=== PATIENT | male | born 1965 | race Caucasian/White ===

== ENCOUNTER 2018-06-02 19:01 | Emergency (ER) | payer MEDICAID ==
[~2018-06-02] VITALS: Ht 167.6 cm; Wt 73.7 kg
[~2018-06-02 19:01] MED LIST: ASPI-1265 PO; CEFI400C PO; CLIN-96 PO; HYDR-4383 PO; LANTUS SUBCUT; LISI-222 PO; METF500T PO
[2018-06-02] MEDS ORDERED: ketorolac tromethamine 15mg/ml inj. IM ONE (19:40)
[2018-06-02 20:28] LABS: BASOPHILS % (AUTO) 0.5 % (0-1); EOSINOPHILS # (AUTO) 0.1 X10'3 (0-0.9); EOSINOPHILS % (AUTO) 1.1 % (0-6); HEMATOCRIT 42.7 % (42.0-52.0); LYMPHOCYTES # (AUTO) 1.1 X10'3 (1.1-4.8); MEAN CORPUSCULAR HEMOGLOBIN 28.8 PG (27.0-31.0); MEAN CORPUSCULAR HGB CONC 32.7 g/dL (33.0-36.5); MEAN CORPUSCULAR VOLUME 88.2 FL (78-98); MEAN PLATELET VOLUME 8.4 FL (7.4-10.4); MONOCYTES # (AUTO) 0.5 X10'3 (0-0.9); MONOCYTES % (AUTO) 7.1 % (2-12); NEUTROPHILS # (AUTO) 5.4 X10'3 (1.8-7.7); NEUTROPHILS % (AUTO) 76.3 % (42-75); PLATELET COUNT 270 X10'3 (140-440); RED BLOOD COUNT 4.85 X10'6 (4.70-6.10); WHITE BLOOD COUNT 7.1 X10'3 (4.5-11.0)
[2018-06-02] MEDS ORDERED: IBUP-1984 PO (21:16)
[2018-06-02 21:29] VITALS: BP 152/101
== END 2018-06-02 21:30 | disposition home or self-care (01) ==
LOC: ER 19:01
DX: M79.645 Pain in left finger(s) (principal); I10 Essential (primary) hypertension; E11.9 Type 2 diabetes mellitus without complications; G89.29 Other chronic pain; Z60.2 Problems related to living alone; Z59.0 Homelessness; Z56.0 Unemployment, unspecified; Z88.0 Allergy status to penicillin; Z79.82 Long term (current) use of aspirin; Z79.4 Long term (current) use of insulin; Z79.899 Other long term (current) drug therapy
CPT/HCPCS: 36415; 73140; 84550; 85025; 96372; 99284; J1885

== ENCOUNTER 2018-06-25 02:36 | Inpatient (IN) | payer MEDICAID ==
[~2018-06-25] VITALS: Ht 165.1 cm; Wt 70.0 kg
[2018-06-25] MEDS ORDERED: normal saline 1000ML IV soln IVB ONE ×2 (03:35→05:20)
[2018-06-25 03:52] LABS: BASOPHILS # (AUTO) 0.1 X10'3 (0-0.2); BASOPHILS % (AUTO) 0.9 % (0-1); EOSINOPHILS # (AUTO) 0.1 X10'3 (0-0.9); EOSINOPHILS % (AUTO) 1.3 % (0-6); HEMATOCRIT 42.2 % (42.0-52.0); LYMPHOCYTES # (AUTO) 1.1 X10'3 (1.1-4.8); LYMPHOCYTES % (AUTO) 14.5 % (21-51); MEAN CORPUSCULAR HEMOGLOBIN 29.3 PG (27.0-31.0); MEAN CORPUSCULAR HGB CONC 33.3 g/dL (33.0-36.5); MEAN PLATELET VOLUME 8.7 FL (7.4-10.4); MONOCYTES # (AUTO) 0.7 X10'3 (0-0.9); MONOCYTES % (AUTO) 8.7 % (2-12); NEUTROPHILS # (AUTO) 5.6 X10'3 (1.8-7.7); NEUTROPHILS % (AUTO) 74.6 % (42-75); PLATELET COUNT 340 X10'3 (140-440); RED CELL DISTRIBUTION WIDTH 12.9 % (11.5-14.5); WHITE BLOOD COUNT 7.5 X10'3 (4.5-11.0)
[2018-06-25 04:03] LABS: ALANINE AMINOTRANSFERASE 59 U/L (12-78); ALBUMIN 2.8 G/DL (3.4-5.0); ALBUMIN/GLOBULIN RATIO 0.7 (1.1-1.5); ALKALINE PHOSPHATASE 245 IU/L (46-116); ANION GAP 5 (8-16); ASPARTATE AMINO TRANSFERASE 27 U/L (10-37); BILIRUBIN,TOTAL 0.3 MG/DL (0.1-1.0); BLOOD UREA NITROGEN 15 MG/DL (7-18); BUN/CREATININE RATIO 11.6 (5.4-32.0); CHLORIDE 93 MMOL/L (99-107); CREATININE 1.29 MG/DL (0.60-1.10); POTASSIUM 4.4 MMOL/L (3.5-5.1); SODIUM 128 MMOL/L (135-145); TOTAL CARBON DIOXIDE 30.3 MMOL/L (24-32); eGFR 58 ML/MIN
[2018-06-25 04:04] LABS: LIPASE 1896 U/L (73-393)
[2018-06-25 04:04] LABS: CLARITY,URINE CLEAR (Clear); COLOR,URINE STRAW (Yellow); GLUCOSE, URINE >=1000 mg/dl (Neg); KETONES,URINE NEGATIVE (Neg); LEUKOCYTE ESTERASE ,URINE NEGATIVE (Neg); NITRITES, URINE NEGATIVE (Neg); OCCULT BLOOD,URINE TRACE-INTACT (Neg); PH,URINE 6.5 (4.8-8.0); PROTEIN,URINE NEGATIVE (Neg); UROBILINOGEN,URINE 0.2 E.U/dL (0.2-1.0)
[2018-06-25 04:14] LABS: UA COLLECTION TYPE CLN CATCH MIDSTREAM
[2018-06-25 04:18] LABS: BACTERIA,URINE NONE SEEN /HPF (Neg); MUCUS STRANDS NONE SEEN /LPF (Neg); RBC,URINE 0-2 /HPF (0-2); SQUAMOUS EPITHELIAL CELL,UR NONE SEEN /LPF (FEW); WBC,URINE 0-4 /HPF (0-4)
[2018-06-25 04:24] LABS: GLUCOSE 800 MG/DL (70-104)
[2018-06-25] MEDS ORDERED: NO HOME MEDS (05:26)
[2018-06-25] MEDS ORDERED: iohexol 300mg/ml 100ml inj. ONE (05:32)
[2018-06-25] MEDS ORDERED: LANTUS SQ (07:08)
[2018-06-25] MEDS ORDERED: magnesium 4gm in 100ml NS 100 ML IV PRN (07:15)
[2018-06-25] MEDS ORDERED: potassium Cl 40MEQ/NS 500ml 500 ML IV PRN ×2 (07:15)
[2018-06-25] MEDS ORDERED: HYDROcodone/acetaminophen 5mg/325mg tablet PO PRN (07:15)
[2018-06-25] MEDS ORDERED: mag hydrox/Alum hydrox/simeth 30ml oral suspension PO PRN (07:15)
[2018-06-25] MEDS ORDERED: HYDROcodone/acetaminophen 10/325mg tab PO PRN (07:15)
[2018-06-25] MEDS ORDERED: MESSAGE TO PHARMACY PO ONE (07:15)
[2018-06-25] MEDS ORDERED: dextrose ORAL solution 15 GM/59 ML bottle PO PRN ×2 (07:15)
[2018-06-25] MEDS ORDERED: dextrose 50%-water 50ml dispensing syringe IV PRN ×2 (07:15)
[2018-06-25] MEDS ORDERED: glucagon, human recombinant 1mg kit SUBCUT PRN (07:15)
[2018-06-25] MEDS ORDERED: magnesium Cl slow-release 64mg tablet PO PRN (07:15)
[2018-06-25] MEDS ORDERED: ondansetron/PF 4mg/2ml inj IV PRN (07:15)
[2018-06-25] MEDS ORDERED: magnesium 2GM in 50ml NS 50 ML IV PRN (07:15)
[2018-06-25] MEDS ORDERED: morphine 2 MG/ML inj. syringe IV PRN (07:15)
[2018-06-25] MEDS ORDERED: acetaminophen 325mg tablet PO PRN ×2 (07:15)
[2018-06-25] MEDS ORDERED: potassium Cl 20 mEq SR tablet PO PRN ×2 (07:15)
[2018-06-25] MEDS ORDERED: magnesium hydroxide 30ml (MOM) UD suspension PO PRN (07:15)
[2018-06-25] MEDS: normal saline 1000ml 1,000 ML IV SCH ×3 (07:28→22:15)
[2018-06-25 07:41] LABS: CLARITY,URINE CLEAR (Clear); COLOR,URINE YELLOW (Yellow); GLUCOSE, URINE >=1000 mg/dl (Neg); KETONES,URINE NEGATIVE (Neg); LEUKOCYTE ESTERASE ,URINE NEGATIVE (Neg); NITRITES, URINE NEGATIVE (Neg); OCCULT BLOOD,URINE TRACE-LYSED (Neg); PROTEIN,URINE NEGATIVE (Neg); UROBILINOGEN,URINE 0.2 E.U/dL (0.2-1.0)
[2018-06-25 07:46] LABS: UA COLLECTION TYPE CLN CATCH MIDSTREAM
[2018-06-25 07:47] LABS: BACTERIA,URINE NONE SEEN /HPF (Neg); MUCUS STRANDS FEW /LPF (Neg); RBC,URINE 0-2 /HPF (0-2); SQUAMOUS EPITHELIAL CELL,UR FEW /LPF (FEW); WBC,URINE NONE SEEN /HPF (0-4)
[2018-06-25] MEDS: K and/or MAG REPLACEMENT MC SCH (07:48)
[2018-06-25] MEDS: heparin, porcine 5000 units/ml vial SQ SCH ×2 (07:53→19:27)
--- NOTE | 2018-06-25 08:21 | NUR ---
Called report to Melissa OREILLY. Dr. Calderón talking with pt. now.
[2018-06-25] MEDS: insulin Lispro (HumaLOG) vial - multi-dose SQ SCH ×3 (08:39→19:25)
[2018-06-25 08:44] LABS: HEMOGLOBIN A1C 12.5 % (4.5-6.2)
[2018-06-25] MEDS: metroNIDAZOLE-Flagyl 500mg/NS 100 ML IV SCH ×2 (10:28→17:23)
[2018-06-25 12:00] VITALS: BP 119/89
[2018-06-25] MEDS: morphine 2 MG/ML inj. syringe IV PRN ×2 (17:34→22:24)
[2018-06-25 19:00] VITALS: BP 112/74
[2018-06-25] MEDS ORDERED: temazepam 15mg capsule PO PRN (21:00)
[2018-06-25] MEDS ORDERED: insulin glargine (Lantus) pen - multi-dose SQ SCH (21:00)
[2018-06-25 23:00] VITALS: BP 112/76
[2018-06-26] MEDS: metroNIDAZOLE-Flagyl 500mg/NS 100 ML IV SCH ×3 (00:23→16:00)
[2018-06-26] MEDS: morphine 2 MG/ML inj. syringe IV PRN ×2 (02:16→09:31)
[2018-06-26] MEDS: normal saline 1000ml 1,000 ML IV SCH ×2 (05:20→11:09)
[2018-06-26 05:21] LABS: BASOPHILS % (AUTO) 0.6 % (0-1); EOSINOPHILS # (AUTO) 0.1 X10'3 (0-0.9); EOSINOPHILS % (AUTO) 1.4 % (0-6); HEMATOCRIT 37.6 % (42.0-52.0); HEMOGLOBIN 12.8 g/dl (14.0-17.9); LYMPHOCYTES # (AUTO) 1.7 X10'3 (1.1-4.8); LYMPHOCYTES % (AUTO) 23.7 % (21-51); MEAN CORPUSCULAR HEMOGLOBIN 29.5 PG (27.0-31.0); MEAN CORPUSCULAR VOLUME 86.8 FL (78-98); MEAN PLATELET VOLUME 8.6 FL (7.4-10.4); MONOCYTES # (AUTO) 0.5 X10'3 (0-0.9); MONOCYTES % (AUTO) 7.6 % (2-12); NEUTROPHILS # (AUTO) 4.8 X10'3 (1.8-7.7); NEUTROPHILS % (AUTO) 66.7 % (42-75); PLATELET COUNT 314 X10'3 (140-440); RED BLOOD COUNT 4.33 X10'6 (4.70-6.10); RED CELL DISTRIBUTION WIDTH 13.3 % (11.5-14.5); WHITE BLOOD COUNT 7.2 X10'3 (4.5-11.0)
--- NOTE | 2018-06-26 05:23 | NUR ---
Patient in room DOROTHY 340. I have received report from Deena RN and had the opportunity to ask questions and assume patient care. Pt sleeping on his back. No signs of distress, will continue to monitor.
[2018-06-26 05:46] LABS: ALANINE AMINOTRANSFERASE 43 U/L (12-78); ALBUMIN 2.2 G/DL (3.4-5.0); ALBUMIN/GLOBULIN RATIO 0.6 (1.1-1.5); ALKALINE PHOSPHATASE 186 IU/L (46-116); ANION GAP 8 (8-16); ASPARTATE AMINO TRANSFERASE 20 U/L (10-37); BILIRUBIN,TOTAL 0.3 MG/DL (0.1-1.0); BLOOD UREA NITROGEN 10 MG/DL (7-18); BUN/CREATININE RATIO 11.6 (5.4-32.0); CALCIUM 8.3 MG/DL (8.5-10.1); CHLORIDE 107 MMOL/L (99-107); CREATININE 0.86 MG/DL (0.60-1.10); GLUCOSE 188 MG/DL (70-104); MAGNESIUM 1.4 MG/DL (1.5-2.4); POTASSIUM 3.5 MMOL/L (3.5-5.1); SODIUM 140 MMOL/L (135-145); TOTAL CARBON DIOXIDE 25.1 MMOL/L (24-32); TOTAL PROTEIN 5.6 G/DL (6.4-8.2); eGFR > 90 ML/MIN
--- NOTE | 2018-06-26 06:27 | NUR ---
Problems reprioritized. Patient report given, questions answered & plan of care reviewed with Melissa OREILLY.
[2018-06-26 07:16] VITALS: BP 132/75
[2018-06-26] MEDS: K and/or MAG REPLACEMENT MC SCH (08:00)
[2018-06-26] MEDS: heparin, porcine 5000 units/ml vial SQ SCH (09:29)
[2018-06-26] MEDS: insulin Lispro (HumaLOG) vial - multi-dose SQ SCH ×2 (11:07→14:27)
[2018-06-26 12:00] VITALS: BP 115/75
[2018-06-26] MEDS ORDERED: LEVO500T89 PO (12:57)
[2018-06-26] MEDS ORDERED: INSU100C10 SQ (12:59)
--- NOTE | 2018-06-26 13:53 | NUR ---
DM Consult: A1C 12.5. Pt admit w/ back and side pain DX acute pancreatitis GLU 800. GLU 253 today pt refused Lantus. Pt seen by RD for written/verbal DM ed w/ RD contact information provided. Pt reports he has a place to stay and is able to cook meals at home though EMR says homeless hx. RD reviewed proper portion sizing, meal frequency, hydration, and protein/fiber needs. RD encouraged pt to attend CDE course and contact RD in case further questions. Pt currently NPO w/ d/c orders in place. LB 06/24. Will continue to monitor. Rec: 1. advance diet to carb controlled/heart healthy 2. monitor for ONS needs 3. wt per rx Addendum: 06/26/18 at [address] Amended: Links added.
== END 2018-06-26 17:00 | disposition home or self-care (01) | DRG 463 ==
LOC: ER 02:36 → SUR 3N 07:19
PROVIDERS: ADMIT Internal Medicine; ATTEND Hospitalist
PROC: BW211ZZ Computerized Tomography (CT Scan) of Abdomen and Pelvis using Low Osmolar Contrast (ICD-10-PCS; principal; 2018-06-25)
DX: N12 Tubulo-interstitial nephritis, not specified as acute or chronic (principal); N17.9 Acute kidney failure, unspecified; E11.22 Type 2 diabetes mellitus with diabetic chronic kidney disease; E11.42 Type 2 diabetes mellitus with diabetic polyneuropathy; E11.65 Type 2 diabetes mellitus with hyperglycemia; E83.42 Hypomagnesemia; E87.1 Hypo-osmolality and hyponatremia; F15.90 Other stimulant use, unspecified, uncomplicated; F17.210 Nicotine dependence, cigarettes, uncomplicated; I12.9 Hypertensive chronic kidney disease with stage 1 through stage 4 chronic kidney disease, or unspecified chronic kidney disease; M54.9 Dorsalgia, unspecified; N18.9 Chronic kidney disease, unspecified; G89.29 Other chronic pain; Z59.0 Homelessness; Z88.0 Allergy status to penicillin; Z56.0 Unemployment, unspecified
CPT/HCPCS: 36415; 71045; 74177; 80053; 81001; 82009; 82948; 83036; 83605; 83690; 83735; 84484; 85025; 85610; 87040; 87070; 93005; 93306; 96360; 99285; G0378; J1644; J1815; J2270; J3490; J7030; Q9967

== ENCOUNTER 2018-07-09 23:57 | Emergency (ER) | payer MEDICAID ==
[~2018-07-09] VITALS: Ht 167.6 cm; Wt 67.2 kg
[~2018-07-09 23:57] MED LIST changes: -ASPI-1265 PO; -CEFI400C PO; -CLIN-96 PO; -HYDR-4383 PO; +INSU100C10 SQ; +LANTUS SQ; -LANTUS SUBCUT; +LEVO500T89 PO; -LISI-222 PO; -METF500T PO
[2018-07-10] MEDS ORDERED: morphine 4 MG/ML inj SYRINge IV PRN (00:40)
[2018-07-10] MEDS ORDERED: ondansetron/PF 4mg/2ml inj IV ONE (00:40)
[2018-07-10] MEDS ORDERED: normal saline 1000ML IV soln IVB ONE ×2 (00:40→01:10)
[2018-07-10 00:46] LABS: CLARITY,URINE CLEAR (Clear); COLOR,URINE YELLOW (Yellow); GLUCOSE, URINE >=1000 mg/dl (Neg); KETONES,URINE NEGATIVE (Neg); LEUKOCYTE ESTERASE ,URINE NEGATIVE (Neg); NITRITES, URINE NEGATIVE (Neg); OCCULT BLOOD,URINE NEGATIVE (Neg); PROTEIN,URINE NEGATIVE (Neg); UROBILINOGEN,URINE 0.2 E.U/dL (0.2-1.0)
[2018-07-10 00:47] LABS: BASOPHILS # (AUTO) 0.1 X10'3 (0-0.2); BASOPHILS % (AUTO) 0.9 % (0-1); EOSINOPHILS # (AUTO) 0.1 X10'3 (0-0.9); EOSINOPHILS % (AUTO) 1.1 % (0-6); HEMATOCRIT 42.1 % (42.0-52.0); HEMOGLOBIN 14.2 g/dl (14.0-17.9); LYMPHOCYTES # (AUTO) 1.6 X10'3 (1.1-4.8); LYMPHOCYTES % (AUTO) 20.8 % (21-51); MEAN CORPUSCULAR HEMOGLOBIN 29.8 PG (27.0-31.0); MEAN CORPUSCULAR HGB CONC 33.7 g/dL (33.0-36.5); MEAN CORPUSCULAR VOLUME 88.7 FL (78-98); MEAN PLATELET VOLUME 8.3 FL (7.4-10.4); MONOCYTES # (AUTO) 0.6 X10'3 (0-0.9); MONOCYTES % (AUTO) 7.3 % (2-12); NEUTROPHILS # (AUTO) 5.3 X10'3 (1.8-7.7); NEUTROPHILS % (AUTO) 69.9 % (42-75); PLATELET COUNT 364 X10'3 (140-440); RED BLOOD COUNT 4.75 X10'6 (4.70-6.10); RED CELL DISTRIBUTION WIDTH 13.4 % (11.5-14.5); WHITE BLOOD COUNT 7.6 X10'3 (4.5-11.0)
[2018-07-10 00:51] LABS: RBC,URINE NONE SEEN /HPF (0-2); SQUAMOUS EPITHELIAL CELL,UR NONE SEEN /LPF (FEW); UA COLLECTION TYPE CLN CATCH MIDSTREAM; WBC,URINE NONE SEEN /HPF (0-4)
[2018-07-10 00:52] LABS: BACTERIA,URINE NONE SEEN /HPF (Neg)
[2018-07-10 01:01] LABS: CHLORIDE 98 MMOL/L (99-107); POTASSIUM 4.2 MMOL/L (3.5-5.1); SODIUM 132 MMOL/L (135-145); TOTAL CARBON DIOXIDE 28.8 MMOL/L (24-32)
[2018-07-10 01:02] LABS: ALANINE AMINOTRANSFERASE 30 U/L (12-78); ALBUMIN 3.1 G/DL (3.4-5.0); ALBUMIN/GLOBULIN RATIO 0.8 (1.1-1.5); ALKALINE PHOSPHATASE 144 IU/L (46-116); AMYLASE 61 U/L (25-115); ANION GAP 5 (8-16); ASPARTATE AMINO TRANSFERASE 13 U/L (10-37); BILIRUBIN,TOTAL 0.3 MG/DL (0.1-1.0); BLOOD UREA NITROGEN 20 MG/DL (7-18); BUN/CREATININE RATIO 17.5 (5.4-32.0); CALCIUM 9.5 MG/DL (8.5-10.1); CREATININE 1.14 MG/DL (0.60-1.10); LIPASE 819 U/L (73-393); TOTAL PROTEIN 7.1 G/DL (6.4-8.2); eGFR 67 ML/MIN
[2018-07-10 01:04] VITALS: BP 143/101
[2018-07-10 01:07] LABS: GLUCOSE 545 MG/DL (70-104)
[2018-07-10] MEDS ORDERED: insulin regular, human 10 units/0.1 ml syringe IV ONE (01:10)
== END 2018-07-10 02:04 | disposition home or self-care (01) ==
LOC: ER 23:57
DX: E11.65 Type 2 diabetes mellitus with hyperglycemia (principal); R10.13 Epigastric pain; I12.9 Hypertensive chronic kidney disease with stage 1 through stage 4 chronic kidney disease, or unspecified chronic kidney disease; E11.22 Type 2 diabetes mellitus with diabetic chronic kidney disease; N18.9 Chronic kidney disease, unspecified; G89.29 Other chronic pain; Z59.0 Homelessness; Z56.0 Unemployment, unspecified; Z88.0 Allergy status to penicillin; Z79.4 Long term (current) use of insulin; Z79.2 Long term (current) use of antibiotics
CPT/HCPCS: 36415; 74176; 80053; 81001; 82150; 82948; 83690; 85025; 85610; 96361; 96374; 96375; 99284; J1815; J2270; J2405; J7030

== ENCOUNTER 2018-12-12 05:27 | Day surgery (SDC) | payer MEDICAID ==
[2018-12-07 10:43] LABS: LYMPHOCYTES # (AUTO) 2.2 X10'3 (1.1-4.8); PRE OP HEMOGLOBIN 16.6 g/dL (14.0-17.9)
[2018-12-07 10:45] LABS: BASOPHILS # (AUTO) 0.1 X10'3 (0-0.2); BASOPHILS % (AUTO) 0.8 % (0-1); EOSINOPHILS # (AUTO) 0.1 X10'3 (0-0.9); EOSINOPHILS % (AUTO) 1.9 % (0-6); LYMPHOCYTES % (AUTO) 29.4 % (21-51); MEAN CORPUSCULAR HEMOGLOBIN 30.9 PG (27.0-31.0); MEAN CORPUSCULAR HGB CONC 35.2 g/dL (33.0-36.5); MEAN CORPUSCULAR VOLUME 87.6 FL (78-98); MEAN PLATELET VOLUME 7.8 FL (7.4-10.4); MONOCYTES # (AUTO) 0.6 X10'3 (0-0.9); MONOCYTES % (AUTO) 7.9 % (2-12); NEUTROPHILS # (AUTO) 4.4 X10'3 (1.8-7.7); PRE OP HEMATOCRIT 47.1 % (42.0-52.0); PRE OP PLATELET COUNT 291 X10'3 (140-440); RED BLOOD COUNT 5.37 X10'6 (4.70-6.10); RED CELL DISTRIBUTION WIDTH 12.8 % (11.5-14.5)
[2018-12-07 10:52] LABS: ALBUMIN 3.7 G/DL (3.4-5.0); ALBUMIN/GLOBULIN RATIO 0.9 (1.1-1.5); ALKALINE PHOSPHATASE 131 IU/L (46-116); BLOOD UREA NITROGEN 14 MG/DL (7-18); BUN/CREATININE RATIO 12.8 (5.4-32.0); CALCIUM 9.3 MG/DL (8.5-10.1); CHLORIDE 100 MMOL/L (99-107); CREATININE 1.09 MG/DL (0.60-1.10); PRE OP ALT 40 U/L (30-65); PRE OP ANION GAP 6 (8-16); PRE OP AST 12 U/L (10-37); PRE OP BILIRUB, TOTAL 0.4 MG/DL (0.0-1.0); PRE OP POTASSIUM 4.3 MMOL/L (3.4-5.1); PRE OP SODIUM 136 MMOL/L (135-145); TOTAL CARBON DIOXIDE 30.5 MMOL/L (24-32); TOTAL PROTEIN 7.6 G/DL (6.4-8.2); eGFR 70 ML/MIN
[2018-12-07 11:02] LABS: PRE OP GLUCOSE 405 MG/DL (70-104)
[2018-12-07 13:49] LABS: HEMOGLOBIN A1C 10.7 % (4.5-6.2)
[~2018-12-12] VITALS: Ht 170.2 cm; Wt 63.5 kg
[~2018-12-12 05:27] MED LIST changes: -LEVO500T89 PO; +LISI10TA4 PO; +METF500T20 PO; +ringers solution, lacted 1,000 ML IV SCH
[2018-12-12] MEDS ORDERED: famotidine 20mg tablet PO ONE (05:30)
[2018-12-12] MEDS ORDERED: clindamycin-Cleocin 900mg/D5W 50 ML IV ONE (05:30)
[2018-12-12] MEDS ORDERED: LIDOcaine 1% (10mg/ml) 2ml vial ONE (06:00)
[2018-12-12] MEDS ORDERED: LIDOcaine 1% 30ml preserv. free vial ONE (06:41)
[2018-12-12] MEDS ORDERED: BUPIVAcaine/PF 2.5 mg/ml (0.25%) 30ml vial ONE (06:41)
[2018-12-12] MEDS ORDERED: insulin regular, human 10 units/0.1 ml syringe IV ONE (07:00)
[2018-12-12] MEDS ORDERED: insulin glargine (Lantus) pen - multi-dose SQ ONE (07:00)
--- NOTE | 2018-12-12 07:30 | NUR ---
PT ARRIVED TO [facility] FOR SURGERY AT 0530, ACCU CHECK AT THAT TIME WAS 355. CALL OUT TO DR NGUYEN, ANESTHESIA. AFTER ORDERS WERE RECEIVED AND MEDS WERE RETRIEVED FROM PHARMACY, PT WAS GIVEN 20 UNITS OF REGULAR INSULIN IV. DR RAZO CAME TO SEE PT, SURGERY IS CANCELLED UNTIL PT HAS BETTER DIABETIC CONTROL. PT DID NOT RECEIVE 40 UNITS LANTUS BECAUSE SURGERY WAS CANCELLED. PT LEFT BEFORE BLOOD GLUCOSE WAS RE CHECKED. I CALLED HIM AT HOME AND HAD HIM CHECK IT, IT WAS 121. PT STATES HE WILL FOLLOW UP JOHN WITH PCP TO ADJUST MEDS.
== END 2018-12-12 07:30 | disposition home or self-care (01) ==
LOC: PAS 05:27
PROVIDERS: ATTEND Surgery
DX: K40.20 Bilateral inguinal hernia, without obstruction or gangrene, not specified as recurrent (principal); Z53.8 Procedure and treatment not carried out for other reasons; I10 Essential (primary) hypertension; E11.40 Type 2 diabetes mellitus with diabetic neuropathy, unspecified; Z98.890 Other specified postprocedural states; Z79.4 Long term (current) use of insulin; Z79.899 Other long term (current) drug therapy; F17.210 Nicotine dependence, cigarettes, uncomplicated; Z88.0 Allergy status to penicillin; Z83.3 Family history of diabetes mellitus; Z82.49 Family history of ischemic heart disease and other diseases of the circulatory system; Z80.9 Family history of malignant neoplasm, unspecified
CPT/HCPCS: 36415; 80053; 82948; 83036; 85025; 93005; J1815; J2001; J3490; J7120

== ENCOUNTER 2019-10-30 15:58 | Inpatient (IN) | payer MEDICAID ==
[~2019-10-30] VITALS: Ht 170.2 cm; Wt 65.9 kg
[~2019-10-30 15:58] MED LIST changes: +METF-900 PO; -METF500T20 PO; -ringers solution, lacted 1,000 ML IV SCH
[2019-10-30] MEDS ORDERED: normal saline 1000ML IV soln IVB ONE (16:40)
[2019-10-30] MEDS ORDERED: ondansetron/PF 4mg/2ml inj IV ONE (16:40)
[2019-10-30] MEDS ORDERED: morphine 4 MG/ML inj SYRINge IV ONE (16:40)
--- NOTE | 2019-10-30 16:58 | NUR ---
RELIEVING RN FOR BREAK, PT IS CURLED UP IN POSITION FROM PAIN "IT IS A 20", C/O PAIN TO LEFT LATERAL RIBS, HAVE MEDICATED PER MD ORDER, PAIN REMAINS "20", PT IS MOANING LOUDLY, Beba WOODY AWARE,
[2019-10-30] MEDS ORDERED: fentaNYL/PF 50MCG/1 ML 2ML syringe IV ONE ×2 (17:05→17:45)
[2019-10-30 17:32] LABS: BASOPHILS % (AUTO) 0.6 % (0-1); EOSINOPHILS % (AUTO) 0.7 % (0-6); HEMATOCRIT 44.4 % (42.0-52.0); HEMOGLOBIN 14.9 g/dl (14.0-17.9); LYMPHOCYTES # (AUTO) 1.6 X10'3 (1.1-4.8); LYMPHOCYTES % (AUTO) 23.8 % (21-51); MEAN CORPUSCULAR HEMOGLOBIN 30.6 PG (27.0-31.0); MEAN CORPUSCULAR HGB CONC 33.6 g/dL (33.0-36.5); MEAN CORPUSCULAR VOLUME 91.2 FL (78-98); MEAN PLATELET VOLUME 8.8 FL (7.4-10.4); MONOCYTES # (AUTO) 0.6 X10'3 (0-0.9); MONOCYTES % (AUTO) 9.2 % (2-12); NEUTROPHILS # (AUTO) 4.4 X10'3 (1.8-7.7); NEUTROPHILS % (AUTO) 65.7 % (42-75); PLATELET COUNT 305 X10'3 (140-440); RED BLOOD COUNT 4.87 X10'6 (4.70-6.10); RED CELL DISTRIBUTION WIDTH 13.2 % (11.5-14.5); WHITE BLOOD COUNT 6.8 X10'3 (4.5-11.0)
--- NOTE | 2019-10-30 17:37 | NUR ---
BACK FROM CT PT PLACED BACK ON MONITOR AND FLUIDS RESUMED
[2019-10-30 17:38] LABS: ALANINE AMINOTRANSFERASE 29 U/L (12-78); ALBUMIN 3.5 G/DL (3.4-5.0); ALBUMIN/GLOBULIN RATIO 1.2 (1.1-1.5); ALKALINE PHOSPHATASE 127 IU/L (46-116); ANION GAP 7 (8-16); ASPARTATE AMINO TRANSFERASE 15 U/L (10-37); BILIRUBIN,TOTAL 0.5 MG/DL (0.1-1.0); BLOOD UREA NITROGEN 22 MG/DL (7-18); BUN/CREATININE RATIO 12.6 (5.4-32.0); CALCIUM 8.9 MG/DL (8.5-10.1); CHLORIDE 98 MMOL/L (99-107); CREATININE 1.74 MG/DL (0.60-1.10); ETHANOL < 0.010 GM/DL (0.0-0.010); POTASSIUM 4.2 MMOL/L (3.5-5.1); SODIUM 131 MMOL/L (135-145); TOTAL CARBON DIOXIDE 25.9 MMOL/L (24-32); TOTAL PROTEIN 6.4 G/DL (6.4-8.2); eGFR 41 ML/MIN
--- NOTE | 2019-10-30 17:41 | NUR ---
let pt know that pt has a pnuemo and increasing pain, req x rays stat
[2019-10-30] MEDS ORDERED: ketamine 10mg/ml 20ml inj IV ONE (17:45)
[2019-10-30] MEDS ORDERED: ketamine 50 mg/ml 10ml vial IV ONE (17:50)
[2019-10-30 17:57] LABS: GLUCOSE 615 MG/DL (70-104)
--- NOTE | 2019-10-30 18:02 | NUR ---
CALLED PT DANY LONDON [phone] TO LET HER KNOW THAT PATIENT IS HERE, LEFT A MESSAGE ON HER VOICE MAIL TO CALL [facility]
[2019-10-30] MEDS ORDERED: HYDROmorphone inj. 0.5 MG/0.5 ML DISP.SYRIN IV ONE (18:30)
[2019-10-30] MEDS ORDERED: diazepam inj 5 MG/ML inj. IV ONE (19:00)
[2019-10-30 19:21] LABS: CLARITY,URINE CLEAR (Clear); COLOR,URINE YELLOW (Yellow); GLUCOSE, URINE >=1000 mg/dl (Neg); KETONES,URINE NEGATIVE (Neg); LEUKOCYTE ESTERASE ,URINE NEGATIVE (Neg); NITRITES, URINE NEGATIVE (Neg); OCCULT BLOOD,URINE NEGATIVE (Neg); PROTEIN,URINE NEGATIVE (Neg); UROBILINOGEN,URINE 0.2 E.U/dL (0.2-1.0)
[2019-10-30 19:33] LABS: UA COLLECTION TYPE CLN CATCH MIDSTREAM; URINE AMPHETAMINE SCREEN POSITIVE (Neg); URINE BARBITUATE SCREEN NEGATIVE (Neg); URINE BENZODIAZEPINES SCREEN NEGATIVE (Neg); URINE CANNABINOID SCREEN NEGATIVE (Neg); URINE COCAINE SCREEN NEGATIVE (Neg); URINE METHADONE SCREEN NEGATIVE (Neg); URINE OPIATE SCREEN POSITIVE (Neg); URINE PHENCYCLIDINE SCREEN NEGATIVE (Neg)
[2019-10-30 19:34] LABS: BACTERIA,URINE NONE SEEN /HPF (Neg); RBC,URINE NONE SEEN /HPF (0-2); SQUAMOUS EPITHELIAL CELL,UR FEW /LPF (FEW); WBC,URINE 0-4 /HPF (0-4)
[2019-10-30] MEDS ORDERED: magnesium 4gm in 100ml NS 100 ML IV PRN (19:50)
[2019-10-30] MEDS ORDERED: HYDROcodone/acetaminophen 5mg/325mg tablet PO PRN (19:50)
[2019-10-30] MEDS ORDERED: magnesium Cl slow-release 64mg tablet PO PRN (19:50)
[2019-10-30] MEDS ORDERED: acetaminophen 325mg tablet PO PRN (19:50)
[2019-10-30] MEDS ORDERED: magnesium hydroxide 30ml (MOM) UD suspension PO PRN (19:50)
[2019-10-30] MEDS ORDERED: potassium CL 10mEq/100ml bag 100 ML IV PRN ×2 (19:50)
[2019-10-30] MEDS ORDERED: magnesium 2GM in 50ml NS 50 ML IV PRN (19:50)
[2019-10-30] MEDS ORDERED: potassium Cl 20 mEq SR tablet PO PRN ×2 (19:50)
[2019-10-30] MEDS ORDERED: ondansetron/PF 4mg/2ml inj IV PRN (19:50)
[2019-10-30] MEDS ORDERED: mag hydrox/Alum hydrox/simeth 30ml oral suspension PO PRN (19:50)
[2019-10-30] MEDS: K and/or MAG REPLACEMENT MC SCH (19:58)
[2019-10-30] MEDS: docusate sod 100mg capsule PO SCH (20:00)
--- NOTE | 2019-10-30 20:50 | NUR ---
Patient in room PCU 3018. I have received report from Sha OREILLY and had the opportunity to ask questions and assume patient care.
--- NOTE | 2019-10-30 20:55 | NUR ---
Patient arrived on unit alert and oriented and in pain. Two RN skin check preformed, MRSA swab obtained. Vital signs-153/98, 93HR,18RR, 100% O2. Blood sugar 346. Will continue to monitor closely and manage pain.
[2019-10-30] MEDS ORDERED: MESSAGE TO PHARMACY PO ONE (21:10)
[2019-10-30] MEDS ORDERED: glucagon, human recombinant 1mg kit SUBCUT PRN (21:10)
[2019-10-30] MEDS ORDERED: dextrose 50%-water 50ml dispensing syringe IV PRN ×2 (21:10)
[2019-10-30] MEDS ORDERED: dextrose ORAL solution 15 GM/59 ML bottle PO PRN ×2 (21:10)
[2019-10-30 21:15] VITALS: BP 153/98
[2019-10-30] MEDS ORDERED: LORazepam 2 mg/ml vial IV PRN (21:15)
[2019-10-30] MEDS: insulin Lispro (HumaLOG) vial - multi-dose SQ SCH (21:38)
[2019-10-31] MEDS: morphine 2 MG/ML inj. syringe IV PRN ×3 (01:36→11:17)
[2019-10-31 02:00] VITALS: BP 135/92
[2019-10-31 06:11] LABS: BASOPHILS % (AUTO) 0.5 % (0-1); EOSINOPHILS # (AUTO) 0.2 X10'3 (0-0.9); EOSINOPHILS % (AUTO) 1.9 % (0-6); HEMATOCRIT 44.1 % (42.0-52.0); HEMOGLOBIN 14.9 g/dl (14.0-17.9); LYMPHOCYTES # (AUTO) 2.4 X10'3 (1.1-4.8); MEAN CORPUSCULAR HEMOGLOBIN 30.4 PG (27.0-31.0); MEAN CORPUSCULAR HGB CONC 33.9 g/dL (33.0-36.5); MEAN CORPUSCULAR VOLUME 89.8 FL (78-98); MEAN PLATELET VOLUME 8.3 FL (7.4-10.4); MONOCYTES # (AUTO) 0.7 X10'3 (0-0.9); MONOCYTES % (AUTO) 8.8 % (2-12); NEUTROPHILS # (AUTO) 5.2 X10'3 (1.8-7.7); NEUTROPHILS % (AUTO) 60.8 % (42-75); PLATELET COUNT 282 X10'3 (140-440); RED BLOOD COUNT 4.91 X10'6 (4.70-6.10); RED CELL DISTRIBUTION WIDTH 13.3 % (11.5-14.5); WHITE BLOOD COUNT 8.5 X10'3 (4.5-11.0)
--- NOTE | 2019-10-31 06:19 | NUR ---
Problems reprioritized. Patient report given, questions answered & plan of care reviewed with Myriam OREILLY .
[2019-10-31 06:20] LABS: ALANINE AMINOTRANSFERASE 27 U/L (12-78); ALBUMIN 3.1 G/DL (3.4-5.0); ALKALINE PHOSPHATASE 121 IU/L (46-116); ANION GAP 8 (8-16); ASPARTATE AMINO TRANSFERASE 18 U/L (10-37); BILIRUBIN,TOTAL 0.6 MG/DL (0.1-1.0); BLOOD UREA NITROGEN 15 MG/DL (7-18); BUN/CREATININE RATIO 15.8 (5.4-32.0); CALCIUM 8.5 MG/DL (8.5-10.1); CHLORIDE 105 MMOL/L (99-107); CREATININE 0.95 MG/DL (0.60-1.10); GLUCOSE 170 MG/DL (70-104); MAGNESIUM 1.8 MG/DL (1.5-2.4); POTASSIUM 3.5 MMOL/L (3.5-5.1); SODIUM 139 MMOL/L (135-145); TOTAL CARBON DIOXIDE 26.3 MMOL/L (24-32); TOTAL PROTEIN 6.1 G/DL (6.4-8.2); eGFR 82 ML/MIN
--- NOTE | 2019-10-31 06:42 | NUR ---
Patient in room PCU 3018. I have received report from Jie OREILLY and had the opportunity to ask questions and assume patient care.
[2019-10-31 07:00] VITALS: BP 113/78
[2019-10-31] MEDS: docusate sod 100mg capsule PO SCH (07:53)
[2019-10-31] MEDS: K and/or MAG REPLACEMENT MC SCH (08:00)
[2019-10-31] MEDS: insulin Lispro (HumaLOG) vial - multi-dose SQ SCH ×2 (08:10→13:59)
--- NOTE | 2019-10-31 10:58 | NUR ---
Paged Dr. Rausch Re: Avery Emerson RM [id number]. Pt has ordered for PT, Are we able to do this pt eval? Collar brace is on but does not have order. Does pt need to have on? Please advise Myriam OREILLY [phone]
[2019-10-31 11:00] VITALS: BP 142/89
--- NOTE | 2019-10-31 14:01 | NUR ---
Paged Dr. Rausch Re: Avery Emerson RM [id number]. Please clarify, pt is saying he is being discharged today. Please advise, Myriam Urbina RN [phone]
--- NOTE | 2019-10-31 14:49 | NUR ---
Paged dr. Rausch Re: Avery Emerson RM [id number]. Patient is leaving AMA and will not sign AMA form. Myriam OREILLY [phone]
--- NOTE | 2019-10-31 14:51 | NUR ---
Patient left AMA and refused to sign AMA form. Patient was informed that no prescription were given or review. Patient PIV was removed, tele removed. Patient was able to walk to front of the lobby.
[2019-10-31] MEDS ORDERED: insulin glargine (Lantus) pen - multi-dose SQ SCH (21:00)
== END 2019-10-31 15:00 | disposition left against medical advice (07) | DRG 135 ==
LOC: ER 15:59 → ED HOLD 19:48 → PCU 3S 20:55
PROVIDERS: ADMIT Family Medicine; ATTEND Family Medicine
DX: S22.42XA Multiple fractures of ribs, left side, initial encounter for closed fracture (principal); S22.028A Other fracture of second thoracic vertebra, initial encounter for closed fracture; J93.83 Other pneumothorax; E11.42 Type 2 diabetes mellitus with diabetic polyneuropathy; F17.210 Nicotine dependence, cigarettes, uncomplicated; E11.65 Type 2 diabetes mellitus with hyperglycemia; I12.9 Hypertensive chronic kidney disease with stage 1 through stage 4 chronic kidney disease, or unspecified chronic kidney disease; E11.22 Type 2 diabetes mellitus with diabetic chronic kidney disease; N18.9 Chronic kidney disease, unspecified; F15.10 Other stimulant abuse, uncomplicated; Y93.89 Activity, other specified; Y92.89 Other specified places as the place of occurrence of the external cause; Y99.8 Other external cause status; V29.9XXA Motorcycle rider (driver) (passenger) injured in unspecified traffic accident, initial encounter; Z59.0 Homelessness; Z71.89 Other specified counseling; Z79.4 Long term (current) use of insulin
CPT/HCPCS: 36415; 70450; 71045; 71250; 72125; 72131; 74176; 80053; 80305; 80320; 81001; 82948; 83036; 83735; 85025; 85610; 86885; 86900; 86901; 87081; 93005; 94760; 96372; 97110; 97116; 97161; 97530; 99291; 99292; G0378; J1170; J1815; J2270; J2405; J3010; J3360; J7030

== ENCOUNTER 2021-02-17 22:32 | Emergency (ER) | payer MEDICAID ==
[~2021-02-17 22:32] MED LIST changes: +LISI10TA27 PO; -LISI10TA4 PO
== END 2021-02-17 23:40 | disposition left against medical advice (07) ==
LOC: ER 22:32
DX: R50.9 Fever, unspecified (principal); Z20.822 Contact with and (suspected) exposure to COVID-19

== ENCOUNTER 2021-05-03 04:27 | Emergency (ER) | payer MEDICAID ==
[~2021-05-03] VITALS: Ht 170.2 cm; Wt 63.6 kg
[2021-05-03 04:29] VITALS: BP 174/101
== END 2021-05-03 04:50 | disposition home or self-care (01) ==
LOC: ER 04:27
DX: E11.22 Type 2 diabetes mellitus with diabetic chronic kidney disease (principal); I12.9 Hypertensive chronic kidney disease with stage 1 through stage 4 chronic kidney disease, or unspecified chronic kidney disease; N18.9 Chronic kidney disease, unspecified; G89.29 Other chronic pain; M54.9 Dorsalgia, unspecified; Z88.0 Allergy status to penicillin; Z59.00 Homelessness unspecified; Z56.0 Unemployment, unspecified; Z00.00 Encounter for general adult medical examination without abnormal findings
CPT/HCPCS: 99281

== ENCOUNTER 2021-05-05 17:13 | Emergency (ER) | payer MEDICAID ==
[~2021-05-05] VITALS: Ht 170.2 cm; Wt 63.6 kg
[2021-05-05 18:58] VITALS: BP 149/99
== END 2021-05-05 18:59 | disposition home or self-care (01) ==
LOC: ER 17:13
DX: J06.9 Acute upper respiratory infection, unspecified (principal); Z20.822 Contact with and (suspected) exposure to COVID-19; E11.43 Type 2 diabetes mellitus with diabetic autonomic (poly)neuropathy; I12.9 Hypertensive chronic kidney disease with stage 1 through stage 4 chronic kidney disease, or unspecified chronic kidney disease; E11.22 Type 2 diabetes mellitus with diabetic chronic kidney disease; N18.9 Chronic kidney disease, unspecified; G89.29 Other chronic pain; F17.200 Nicotine dependence, unspecified, uncomplicated; F15.90 Other stimulant use, unspecified, uncomplicated; Z72.89 Other problems related to lifestyle; Z60.2 Problems related to living alone; Z56.0 Unemployment, unspecified; Z59.00 Homelessness unspecified; Z88.0 Allergy status to penicillin; Z79.4 Long term (current) use of insulin; Z79.899 Other long term (current) drug therapy
CPT/HCPCS: 71045; 87635; 99284; C9803

== ENCOUNTER 2021-06-04 04:20 | Emergency (ER) | payer MEDICAID ==
[~2021-06-04] VITALS: Ht 167.6 cm; Wt 59.1 kg
[2021-06-04 04:30] VITALS: BP 156/106
== END 2021-06-04 05:27 | disposition home or self-care (01) ==
LOC: ER 04:20
DX: F15.10 Other stimulant abuse, uncomplicated (principal); E11.42 Type 2 diabetes mellitus with diabetic polyneuropathy; I12.9 Hypertensive chronic kidney disease with stage 1 through stage 4 chronic kidney disease, or unspecified chronic kidney disease; E11.22 Type 2 diabetes mellitus with diabetic chronic kidney disease; N18.9 Chronic kidney disease, unspecified; G89.29 Other chronic pain; Z72.89 Other problems related to lifestyle; Z60.2 Problems related to living alone; Z56.0 Unemployment, unspecified; Z59.00 Homelessness unspecified; Z88.0 Allergy status to penicillin; Z79.4 Long term (current) use of insulin; Z79.899 Other long term (current) drug therapy
CPT/HCPCS: 99281

== ENCOUNTER 2021-06-07 12:09 | Emergency (ER) | payer MEDICAID ==
[~2021-06-07] VITALS: Ht 167.6 cm; Wt 59.0 kg
[2021-06-07 12:23] VITALS: BP 123/93
== END 2021-06-07 15:44 | disposition home or self-care (01) ==
LOC: ER 12:10
DX: Z76.0 Encounter for issue of repeat prescription (principal); Z53.21 Procedure and treatment not carried out due to patient leaving prior to being seen by health care provider

== ENCOUNTER 2021-08-19 14:56 | Emergency (ER) | payer MEDICAID | END 2021-08-19 16:10 | disposition left against medical advice (07) | LOC: ER 14:56 | DX: R06.02 Shortness of breath (principal); Z53.21 Procedure and treatment not carried out due to patient leaving prior to being seen by health care provider ==

== ENCOUNTER 2021-08-26 05:38 | Emergency (ER) | payer MEDICAID ==
[~2021-08-26] VITALS: Ht 170.2 cm; Wt 64.5 kg
[2021-08-26] MEDS ORDERED: hydrOXYzine 25 MG tablet PO ONE (06:55)
[2021-08-26 07:25] LABS: ALANINE AMINOTRANSFERASE 90 U/L (12-78); ALBUMIN 3.1 G/DL (3.4-5.0); ALKALINE PHOSPHATASE 87 IU/L (46-116); ANION GAP 5 (8-16); ASPARTATE AMINO TRANSFERASE 18 U/L (10-37); BILIRUBIN,TOTAL 0.2 MG/DL (0.1-1.0); BLOOD UREA NITROGEN 19 MG/DL (7-18); BUN/CREATININE RATIO 20.9 (5.4-32.0); CALCIUM 8.9 MG/DL (8.5-10.1); CHLORIDE 104 MMOL/L (99-107); CREATININE 0.91 MG/DL (0.60-1.10); GLUCOSE 208 MG/DL (70-104); POTASSIUM 3.7 MMOL/L (3.5-5.1); SODIUM 138 MMOL/L (135-145); TOTAL CARBON DIOXIDE 29.2 MMOL/L (24-32); TOTAL PROTEIN 6.2 G/DL (6.4-8.2); eGFR 86 ML/MIN
[2021-08-26 07:29] LABS: BASOPHILS % (AUTO) 0.2 % (0-1); EOSINOPHILS # (AUTO) 0.1 X10'3 (0-0.9); EOSINOPHILS % (AUTO) 1.9 % (0-6); HEMOGLOBIN 13.7 g/dl (14.0-17.9); LYMPHOCYTES # (AUTO) 1.9 X10'3 (1.1-4.8); LYMPHOCYTES % (AUTO) 24.4 % (21-51); MEAN CORPUSCULAR HEMOGLOBIN 29.7 PG (27.0-31.0); MEAN CORPUSCULAR HGB CONC 34.4 g/dL (33.0-36.5); MEAN CORPUSCULAR VOLUME 86.3 FL (78-98); MEAN PLATELET VOLUME 7.5 FL (7.4-10.4); MONOCYTES # (AUTO) 0.7 X10'3 (0-0.9); MONOCYTES % (AUTO) 8.9 % (2-12); NEUTROPHILS % (AUTO) 64.6 % (42-75); PLATELET COUNT 329 X10'3 (140-440); RED BLOOD COUNT 4.63 X10'6 (4.70-6.10); RED CELL DISTRIBUTION WIDTH 13.9 % (11.5-14.5); WHITE BLOOD COUNT 7.7 X10'3 (4.5-11.0)
[2021-08-26 07:45] VITALS: BP 146/93
[2021-08-26] MEDS ORDERED: HYDR-3686 PO (08:16)
[2021-08-26] MEDS ORDERED: DIPH28.34 TOP (08:16)
[2021-08-26] MEDS ORDERED: DIPH28.33 TOP (08:16)
== END 2021-08-26 08:30 | disposition home or self-care (01) ==
LOC: ER 05:38
DX: L29.9 Pruritus, unspecified (principal); E11.40 Type 2 diabetes mellitus with diabetic neuropathy, unspecified; I12.9 Hypertensive chronic kidney disease with stage 1 through stage 4 chronic kidney disease, or unspecified chronic kidney disease; E11.22 Type 2 diabetes mellitus with diabetic chronic kidney disease; N18.9 Chronic kidney disease, unspecified; G89.29 Other chronic pain; F15.90 Other stimulant use, unspecified, uncomplicated; Z72.89 Other problems related to lifestyle; Z56.0 Unemployment, unspecified; Z59.00 Homelessness unspecified; Z88.0 Allergy status to penicillin; Z79.4 Long term (current) use of insulin; Z79.899 Other long term (current) drug therapy
CPT/HCPCS: 36415; 80053; 82948; 85025; 99283; Q0177

== ENCOUNTER 2022-02-27 12:03 | Emergency (ER) | payer MEDICAID ==
[~2022-02-27] VITALS: Ht 167.6 cm; Wt 61.0 kg
[2022-02-27 12:12] VITALS: BP 131/100
[2022-02-27 12:17] LABS: BASOPHILS # (AUTO) 0.1 X10'3 (0-0.2); BASOPHILS % (AUTO) 1.3 % (0-1); EOSINOPHILS % (AUTO) 12.1 % (0-6); HEMATOCRIT 50.1 % (42.0-52.0); HEMOGLOBIN 17.3 g/dl (14.0-17.9); LYMPHOCYTES # (AUTO) 1.9 X10'3 (1.1-4.8); LYMPHOCYTES % (AUTO) 23.2 % (21-51); MEAN CORPUSCULAR HEMOGLOBIN 31.5 PG (27.0-31.0); MEAN CORPUSCULAR HGB CONC 34.6 g/dL (33.0-36.5); MEAN CORPUSCULAR VOLUME 91.1 FL (78-98); MEAN PLATELET VOLUME 8.2 FL (7.4-10.4); MONOCYTES # (AUTO) 0.5 X10'3 (0-0.9); MONOCYTES % (AUTO) 5.8 % (2-12); NEUTROPHILS # (AUTO) 4.6 X10'3 (1.8-7.7); NEUTROPHILS % (AUTO) 57.6 % (42-75); PLATELET COUNT 289 X10'3 (140-440); RED BLOOD COUNT 5.49 X10'6 (4.70-6.10); RED CELL DISTRIBUTION WIDTH 13.6 % (11.5-14.5)
[2022-02-27 12:37] LABS: ALANINE AMINOTRANSFERASE 30 U/L (12-78); ALBUMIN 3.6 G/DL (3.4-5.0); ALKALINE PHOSPHATASE 137 IU/L (46-116); ANION GAP 5 (8-16); ASPARTATE AMINO TRANSFERASE 20 U/L (10-37); BILIRUBIN,TOTAL 0.4 MG/DL (0.1-1.0); BLOOD UREA NITROGEN 10 MG/DL (7-18); BUN/CREATININE RATIO 8.2 (5.4-32.0); CALCIUM 8.9 MG/DL (8.5-10.1); CHLORIDE 97 MMOL/L (99-107); CREATININE 1.22 MG/DL (0.60-1.10); MAGNESIUM 1.8 MG/DL (1.5-2.4); POTASSIUM 4.1 MMOL/L (3.5-5.1); SODIUM 133 MMOL/L (135-145); TOTAL CARBON DIOXIDE 30.9 MMOL/L (24-32); TOTAL PROTEIN 7.1 G/DL (6.4-8.2); eGFR 61 ML/MIN
[2022-02-27 12:43] LABS: GLUCOSE 563 MG/DL (70-104)
== END 2022-02-27 16:02 | disposition left against medical advice (07) ==
LOC: ER 12:04
DX: R06.02 Shortness of breath (principal); R07.9 Chest pain, unspecified; Z53.21 Procedure and treatment not carried out due to patient leaving prior to being seen by health care provider
CPT/HCPCS: 36415; 71045; 80053; 82948; 83735; 83880; 84484; 85025; 93005

== ENCOUNTER 2022-05-13 13:39 | Emergency (ER) | payer MEDICAID ==
[~2022-05-13] VITALS: Ht 170.2 cm; Wt 61.4 kg
[2022-05-13 14:15] VITALS: BP 127/88
== END 2022-05-13 14:43 | disposition home or self-care (01) ==
LOC: ER 13:40
DX: F15.10 Other stimulant abuse, uncomplicated (principal); I12.0 Hypertensive chronic kidney disease with stage 5 chronic kidney disease or end stage renal disease; E09.22 Drug or chemical induced diabetes mellitus with diabetic chronic kidney disease; N18.6 End stage renal disease; G89.29 Other chronic pain; M54.9 Dorsalgia, unspecified; Z88.0 Allergy status to penicillin; Z79.84 Long term (current) use of oral hypoglycemic drugs
CPT/HCPCS: 99281

== ENCOUNTER 2022-06-28 15:53 | Emergency (ER) | payer MEDICAID ==
[~2022-06-28] VITALS: Ht 170.2 cm; Wt 61.4 kg
[2022-06-28 16:12] VITALS: BP 130/95
== END 2022-06-28 16:59 | disposition home or self-care (01) ==
LOC: ER 15:53
DX: F15.20 Other stimulant dependence, uncomplicated (principal); I12.9 Hypertensive chronic kidney disease with stage 1 through stage 4 chronic kidney disease, or unspecified chronic kidney disease; E11.22 Type 2 diabetes mellitus with diabetic chronic kidney disease; N18.9 Chronic kidney disease, unspecified; E11.42 Type 2 diabetes mellitus with diabetic polyneuropathy; F17.200 Nicotine dependence, unspecified, uncomplicated; Z72.89 Other problems related to lifestyle; Z59.00 Homelessness unspecified; Z60.2 Problems related to living alone; Z56.0 Unemployment, unspecified; Z79.899 Other long term (current) drug therapy
CPT/HCPCS: 99281

== ENCOUNTER 2022-12-21 15:07 | Emergency (ER) | payer MEDICAID ==
[~2022-12-21] VITALS: Ht 170.2 cm; Wt 58.9 kg
[2022-12-21 15:26] VITALS: BP 112/85; PULSE 115; RESP 18; TEMP 97.7; O2SAT 93
== END 2022-12-21 17:53 | disposition home or self-care (01) ==
LOC: ER 15:08
DX: Z02.89 Encounter for other administrative examinations (principal); E11.40 Type 2 diabetes mellitus with diabetic neuropathy, unspecified; E11.22 Type 2 diabetes mellitus with diabetic chronic kidney disease; I12.9 Hypertensive chronic kidney disease with stage 1 through stage 4 chronic kidney disease, or unspecified chronic kidney disease; N18.9 Chronic kidney disease, unspecified; F15.90 Other stimulant use, unspecified, uncomplicated; Z56.0 Unemployment, unspecified; Z59.00 Homelessness unspecified; Z72.89 Other problems related to lifestyle; Z88.0 Allergy status to penicillin; Z79.4 Long term (current) use of insulin; Z79.899 Other long term (current) drug therapy
CPT/HCPCS: 99281

== ENCOUNTER 2023-01-10 12:51 | Emergency (ER) | payer MEDICAID ==
[~2023-01-10] VITALS: Ht 170.2 cm; Wt 60.6 kg
[2023-01-10 12:55] VITALS: BP 149/97
[2023-01-10 13:24] LABS: MONOCYTES # (AUTO) 0.8 X10'3 (0-0.9); NEUTROPHILS # (AUTO) 3.7 X10'3 (1.8-7.7); WHITE BLOOD COUNT 5.6 X10'3 (4.5-11.0)
[2023-01-10 13:26] LABS: BASOPHILS % (AUTO) 0.7 % (0-1); EOSINOPHILS % (AUTO) 0.8 % (0-6); HEMATOCRIT 48.6 % (42.0-52.0); HEMOGLOBIN 16.4 g/dl (14.0-17.9); LYMPHOCYTES # (AUTO) 1.1 X10'3 (1.1-4.8); MEAN CORPUSCULAR HEMOGLOBIN 30.1 PG (27.0-31.0); MEAN CORPUSCULAR HGB CONC 33.7 g/dL (33.0-36.5); MEAN CORPUSCULAR VOLUME 89.3 FL (78-98); MEAN PLATELET VOLUME 8.4 FL (7.4-10.4); NEUTROPHILS % (AUTO) 65.5 % (42-75); PLATELET COUNT 263 X10'3 (140-440); RED BLOOD COUNT 5.44 X10'6 (4.70-6.10); RED CELL DISTRIBUTION WIDTH 13.7 % (11.5-14.5)
[2023-01-10 13:48] LABS: ALANINE AMINOTRANSFERASE 21 U/L (12-78); ALBUMIN 3.3 G/DL (3.4-5.0); ALBUMIN/GLOBULIN RATIO 0.9 (1.1-1.5); ALKALINE PHOSPHATASE 127 IU/L (46-116); ANION GAP 7 (8-16); ASPARTATE AMINO TRANSFERASE 13 U/L (10-37); BILIRUBIN,TOTAL 0.4 MG/DL (0.1-1.0); BLOOD UREA NITROGEN 12 MG/DL (7-18); BUN/CREATININE RATIO 10.6 (10.0-20.0); CHLORIDE 93 MMOL/L (99-107); CREATININE 1.13 MG/DL (0.60-1.10); POTASSIUM 4.1 MMOL/L (3.5-5.1); PRO BRAIN NATRIURETIC PEPTIDE 209 PG/ML (0-125); SODIUM 129 MMOL/L (135-145); TOTAL CARBON DIOXIDE 28.8 MMOL/L (24-32); TOTAL PROTEIN 6.9 G/DL (6.4-8.2); eCRCL 61 ML/MIN; eGFR 67 ML/MIN
[2023-01-10 13:52] LABS: GLUCOSE 514 MG/DL (70-104)
[2023-01-10] MEDS ORDERED: normal saline 1000ML IV soln IVB ONE (15:20)
[2023-01-10 16:58] LABS: D-DIMER < 0.19 MG/L FEU (0-0.50)
[2023-01-10 17:08] LABS: BASOPHILS # (AUTO) 0.1 X10'3 (0-0.2); BASOPHILS % (AUTO) 1.2 % (0-1); EOSINOPHILS # (AUTO) 0.1 X10'3 (0-0.9); LYMPHOCYTES # (AUTO) 1.1 X10'3 (1.1-4.8); LYMPHOCYTES % (AUTO) 21.3 % (21-51); MEAN CORPUSCULAR HEMOGLOBIN 30.3 PG (27.0-31.0); MEAN CORPUSCULAR VOLUME 89.1 FL (78-98); MEAN PLATELET VOLUME 8.4 FL (7.4-10.4); MONOCYTES # (AUTO) 0.8 X10'3 (0-0.9); MONOCYTES % (AUTO) 15.1 % (2-12); NEUTROPHILS # (AUTO) 3.3 X10'3 (1.8-7.7); NEUTROPHILS % (AUTO) 61.4 % (42-75); PLATELET COUNT 245 X10'3 (140-440); RED BLOOD COUNT 5.27 X10'6 (4.70-6.10); RED CELL DISTRIBUTION WIDTH 13.4 % (11.5-14.5); WHITE BLOOD COUNT 5.4 X10'3 (4.5-11.0)
[2023-01-10 17:27] LABS: PLATELET ESTIMATE NORMAL; SMUDGE CELLS FEW; TOTAL CELLS COUNTED 100
--- NOTE | 2023-01-10 17:37 | NUR ---
Pt BS at d/c 537, MD Vasquez notified and approved pt leaving to tx at home, pt aware and declined any intervention and insisted on going home "I'm fine, I have Lantus at home".
[2023-01-10 17:39] VITALS: PULSE 105; RESP 16; TEMP 98.5; O2SAT 98
== END 2023-01-10 17:41 | disposition home or self-care (01) ==
LOC: ER 12:52
DX: U07.1 COVID-19 (principal); R05.9 Cough, unspecified; R06.00 Dyspnea, unspecified; I12.0 Hypertensive chronic kidney disease with stage 5 chronic kidney disease or end stage renal disease; E11.22 Type 2 diabetes mellitus with diabetic chronic kidney disease; N18.9 Chronic kidney disease, unspecified; F17.200 Nicotine dependence, unspecified, uncomplicated; F15.90 Other stimulant use, unspecified, uncomplicated; Z88.0 Allergy status to penicillin; Z79.84 Long term (current) use of oral hypoglycemic drugs; Z79.899 Other long term (current) drug therapy
CPT/HCPCS: 36415; 71045; 80053; 82948; 83880; 84484; 85007; 85025; 85379; 87502; 87503; 87811; 93005; 96360; 99285; J7030; J7040

== ENCOUNTER 2023-05-08 07:27 | Emergency (ER) | payer MEDICAID ==
[~2023-05-08] VITALS: Ht 170.2 cm; Wt 59.1 kg
[2023-05-08] MEDS: normal saline 1000ML IV soln IV ONE (08:21)
[2023-05-08] MEDS: insulin regular, human 10 units/0.1 ml syringe IV ONE (08:23)
[2023-05-08] MEDS: sulfamethoxazole/trimethoprim DS (800/160mg) tablet PO ONE (08:43)
[2023-05-08 08:44] LABS: BASOPHILS # (AUTO) 0.1 X10'3 (0-0.2); BASOPHILS % (AUTO) 0.9 % (0-1); EOSINOPHILS # (AUTO) 0.1 X10'3 (0-0.9); EOSINOPHILS % (AUTO) 1.5 % (0-6); HEMATOCRIT 44.7 % (42.0-52.0); HEMOGLOBIN 15.3 g/dl (14.0-17.9); LYMPHOCYTES # (AUTO) 1.6 X10'3 (1.1-4.8); LYMPHOCYTES % (AUTO) 22.1 % (21-51); MEAN CORPUSCULAR HEMOGLOBIN 30.5 PG (27.0-31.0); MEAN CORPUSCULAR HGB CONC 34.1 g/dL (33.0-36.5); MEAN CORPUSCULAR VOLUME 89.3 FL (78-98); MEAN PLATELET VOLUME 8.6 FL (7.4-10.4); MONOCYTES # (AUTO) 0.5 X10'3 (0-0.9); MONOCYTES % (AUTO) 6.5 % (2-12); PLATELET COUNT 286 X10'3 (140-440); RED BLOOD COUNT 5.01 X10'6 (4.70-6.10); RED CELL DISTRIBUTION WIDTH 12.9 % (11.5-14.5); WHITE BLOOD COUNT 7.3 X10'3 (4.5-11.0)
[2023-05-08 08:45] LABS: BILIRUBIN,URINE NEGATIVE (Neg); CLARITY,URINE CLEAR (Clear); COLOR,URINE STRAW (Yellow); GLUCOSE, URINE >=1000 mg/dl (Neg); KETONES,URINE NEGATIVE (Neg); LEUKOCYTE ESTERASE ,URINE NEGATIVE (Neg); NITRITES, URINE NEGATIVE (Neg); OCCULT BLOOD,URINE NEGATIVE (Neg); PH,URINE 5.5 (4.8-8.0); PROTEIN,URINE NEGATIVE (Neg); UROBILINOGEN,URINE 0.2 E.U/dL (0.2-1.0)
[2023-05-08 08:54] LABS: UA COLLECTION TYPE CLN CATCH MIDSTREAM
[2023-05-08 09:01] LABS: BACTERIA,URINE NONE SEEN /HPF (Neg); MUCUS STRANDS NONE SEEN /LPF (Neg); RBC,URINE 0-2 /HPF (0-2); SQUAMOUS EPITHELIAL CELL,UR NONE SEEN /LPF (FEW); WBC,URINE NONE SEEN /HPF (0-4)
[2023-05-08 09:14] LABS: ALBUMIN 3.1 G/DL (3.4-5.0); ANION GAP 9 (8-16); BLOOD UREA NITROGEN 16 MG/DL (7-18); BUN/CREATININE RATIO 12.8 (10.0-20.0); CALCIUM 8.9 MG/DL (8.5-10.1); CHLORIDE 96 MMOL/L (99-107); CREATININE 1.25 MG/DL (0.60-1.10); POTASSIUM 4.2 MMOL/L (3.5-5.1); SODIUM 132 MMOL/L (135-145); TOTAL CARBON DIOXIDE 27.4 MMOL/L (24-32); eCRCL 54 ML/MIN; eGFR 59 ML/MIN
[2023-05-08 09:20] LABS: GLUCOSE 628 MG/DL (70-104)
[2023-05-08] MEDS ORDERED: NO HOME MEDS (09:58)
[2023-05-08] MEDS ORDERED: potassium Cl 40MEQ/1/2NS 520ml 520 ML IV PRN (10:10)
[2023-05-08] MEDS ORDERED: HYDROcodone/acetaminophen 5mg/325mg tablet PO PRN (10:10)
[2023-05-08] MEDS ORDERED: ondansetron/PF 4mg/2ml inj IV PRN (10:10)
[2023-05-08] MEDS ORDERED: dextrose 50%-water 50ml dispensing syringe IV PRN ×2 (10:10)
[2023-05-08] MEDS ORDERED: magnesium hydroxide 30ml (MOM) UD suspension PO PRN (10:10)
[2023-05-08] MEDS ORDERED: DEXTROSE 15 GM of carb/4 tabs (each vial/BOTTLE has 4 tablets) PO PRN ×2 (10:10)
[2023-05-08] MEDS ORDERED: acetaminophen 325mg tablet PO PRN ×2 (10:10)
[2023-05-08] MEDS ORDERED: HYDROcodone/acetaminophen 10/325mg tab PO PRN (10:10)
[2023-05-08] MEDS ORDERED: insulin Lispro (HumaLOG) vial - multi-dose SQ SCH (10:10)
[2023-05-08] MEDS ORDERED: magnesium 2GM in 50ml NS 50 ML IV PRN (10:10)
[2023-05-08] MEDS ORDERED: potassium Cl 20 mEq SR tablet PO PRN ×2 (10:10)
[2023-05-08] MEDS ORDERED: magnesium 4gm in 100ml NS 100 ML IV PRN (10:10)
[2023-05-08] MEDS ORDERED: glucagon, human recombinant 1mg kit SUBCUT PRN (10:10)
[2023-05-08] MEDS: normal saline 1000ml 1,000 ML IV SCH (10:10)
[2023-05-08] MEDS ORDERED: mag hydrox/Alum hydrox/simeth 30ml oral suspension PO PRN (10:10)
[2023-05-08 10:35] LABS: ALANINE AMINOTRANSFERASE 34 U/L (12-78); ALBUMIN/GLOBULIN RATIO 0.9 (1.1-1.5); ALKALINE PHOSPHATASE 152 IU/L (46-116); ASPARTATE AMINO TRANSFERASE 18 U/L (10-37); BILIRUBIN,DIRECT 0.1 MG/DL (0-0.3); BILIRUBIN,TOTAL 0.2 MG/DL (0.1-1.0); TOTAL PROTEIN 6.5 G/DL (6.4-8.2)
[2023-05-08] MEDS: MESSAGE TO PHARMACY PO ONE (10:59)
[2023-05-08] MEDS ORDERED: LANTUS SUBCUT (10:59)
[2023-05-08] MEDS ORDERED: SULF1TAB49 PO (10:59)
[2023-05-08] MEDS ORDERED: LISI2.5T14 PO (10:59)
[2023-05-08] MEDS: lisinopril 2.5mg tablet PO ONE (11:23)
[2023-05-08] MEDS: insulin regular, human 10 units/0.1 ml syringe SQ ONE (11:26)
[2023-05-08 11:28] VITALS: BP 172/101; PULSE 96; RESP 16; TEMP 98.1; O2SAT 96
[2023-05-08] MEDS ORDERED: K and/or MAG REPLACEMENT MC SCH (20:00)
[2023-05-08] MEDS ORDERED: enoxaparin 40mg/0.4ml syringe SQ SCH (20:00)
[2023-05-08] MEDS ORDERED: docusate sod 100mg capsule PO SCH (20:00)
[2023-05-08] MEDS ORDERED: insulin glargine (Lantus) pen - multi-dose SQ SCH (21:00)
== END 2023-05-08 11:30 | disposition left against medical advice (07) ==
LOC: ER 07:27
DX: E11.00 Type 2 diabetes mellitus with hyperosmolarity without nonketotic hyperglycemic-hyperosmolar coma (NKHHC) (principal); A49.02 Methicillin resistant Staphylococcus aureus infection, unspecified site; G62.89 Other specified polyneuropathies; I12.9 Hypertensive chronic kidney disease with stage 1 through stage 4 chronic kidney disease, or unspecified chronic kidney disease; N18.9 Chronic kidney disease, unspecified; G89.29 Other chronic pain; M54.9 Dorsalgia, unspecified; F17.200 Nicotine dependence, unspecified, uncomplicated; F12.10 Cannabis abuse, uncomplicated; Z88.0 Allergy status to penicillin; Z79.899 Other long term (current) drug therapy; Z91.199 Patient's noncompliance with other medical treatment and regimen due to unspecified reason
CPT/HCPCS: 36415; 71045; 80048; 80076; 81001; 82948; 83036; 83605; 83735; 84145; 84484; 85025; 87040; 93005; 96361; 96372; 96374; 99285; J1815; J7030

== ENCOUNTER 2023-06-05 13:44 | Inpatient (IN) | payer MEDICAID ==
[~2023-06-05] VITALS: Ht 170.2 cm; Wt 54.5 kg
[~2023-06-05 13:44] MED LIST changes: -INSU100C10 SQ; -LANTUS SQ; +LANTUS SUBCUT; -LISI10TA27 PO; +LISI2.5T14 PO; -METF-900 PO; +NO HOME MEDS
[2023-06-05 14:30] LABS: BASOPHILS # (AUTO) 0.1 X10'3 (0-0.2); BASOPHILS % (AUTO) 0.3 % (0-1); EOSINOPHILS % (AUTO) 0 % (0-6); HEMATOCRIT 48.7 % (42.0-52.0); HEMOGLOBIN 16.3 g/dl (14.0-17.9); LYMPHOCYTES # (AUTO) 0.7 X10'3 (1.1-4.8); LYMPHOCYTES % (AUTO) 3.3 % (21-51); MEAN CORPUSCULAR HEMOGLOBIN 29.9 PG (27.0-31.0); MEAN CORPUSCULAR HGB CONC 33.4 g/dL (33.0-36.5); MEAN CORPUSCULAR VOLUME 89.7 FL (78-98); MEAN PLATELET VOLUME 8.8 FL (7.4-10.4); MONOCYTES # (AUTO) 1.5 X10'3 (0-0.9); MONOCYTES % (AUTO) 6.8 % (2-12); NEUTROPHILS # (AUTO) 19.8 X10'3 (1.8-7.7); NEUTROPHILS % (AUTO) 89.6 % (42-75); PLATELET COUNT 351 X10'3 (140-440); RED BLOOD COUNT 5.43 X10'6 (4.70-6.10); RED CELL DISTRIBUTION WIDTH 14.3 % (11.5-14.5); WHITE BLOOD COUNT 22.1 X10'3 (4.5-11.0)
[2023-06-05 14:36] LABS: ALBUMIN 4.2 G/DL (3.4-5.0); ANION GAP 31 (8-16); BLOOD UREA NITROGEN 92 MG/DL (7-18); BUN/CREATININE RATIO 17.2 (10.0-20.0); CALCIUM 7.1 MG/DL (8.5-10.1); CHLORIDE 90 MMOL/L (99-107); CREATININE 5.35 MG/DL (0.60-1.10); POTASSIUM 5.9 MMOL/L (3.5-5.1); PRO BRAIN NATRIURETIC PEPTIDE 643 PG/ML (0-125); SODIUM 133 MMOL/L (135-145); eCRCL 12 ML/MIN; eGFR 11 ML/MIN
[2023-06-05 14:45] LABS: GLUCOSE 29 MG/DL (70-104); TOTAL CARBON DIOXIDE 12.3 MMOL/L (24-32)
[2023-06-05] MEDS: dextrose 50%-water 50ml dispensing syringe IV ONE ×2 (14:50→14:57)
[2023-06-05] MEDS: levoFLOXACIN-Levaquin 500mg/D5 100 ML IV ONE (15:37)
[2023-06-05] MEDS: calcium chloride 100 MG/1 ML inj IV ONE (15:37)
[2023-06-05] MEDS: HYDROmorphone inj. 0.5 MG/0.5 ML DISP.SYRIN IV ONE (15:37)
[2023-06-05] MEDS: sodium polystyrene sulfonate 15gm/60ml oral suspension PO ONE (15:37)
[2023-06-05] MEDS: ondansetron/PF 4mg/2ml inj IV ONE (15:38)
[2023-06-05] MEDS: pantoprazole 40 MG vial IV ONE (15:38)
[2023-06-05 15:39] LABS: APTT 27 SECONDS (22-32); PROTHROMBIN TIME 10.7 SECONDS (9.0-12.0)
[2023-06-05] MEDS: acetaminophen 325mg tablet PO STA (15:39)
[2023-06-05 15:40] LABS: C-REACTIVE PROTEIN 10.96 MG/DL (0.0-0.5)
[2023-06-05] MEDS: normal saline 1000ML IV soln IV ONE (15:40)
[2023-06-05] MEDS: VANCOmycin 1250MG/NS 250ml Bag 250 ML IV ONE (15:41)
[2023-06-05] MEDS: sodium bicarbonate (8.4%) 1 mEq/ml syringe IV ONE (15:56)
[2023-06-05 15:57] LABS: ACETONE SMALL (NEGATIVE)
[2023-06-05 16:33] LABS: OSMOLALITY 314 MOSM/K (280-300)
[2023-06-05 16:42] LABS: LIPASE 17 U/L (16-77); SALICYLATE 4.7 MG/DL (4.0-20.0)
[2023-06-05 16:43] LABS: THYROID STIMULATING HORMONE 0.21 ulU/ml (0.34-4.50)
[2023-06-05 16:44] LABS: ACETAMINOPHEN < 2.0 UG/ML (10-30); ETHANOL < 10 MG/DL (<10)
[2023-06-05] MEDS: albuterol 2.5 MG/3 ML nebule CONTNEB PRN (16:44)
[2023-06-05] MEDS: ipratropium 0.5 MG/2.5ML nebule IH ONE (16:44)
[2023-06-05 16:46] VITALS: PULSE 97; RESP 16; O2SAT 98
[2023-06-05 16:58] VITALS: PULSE 99; RESP 16; O2SAT 99
[2023-06-05 17:04] LABS: ABG BASE EXCESS -15.1 mmol/L (-2.0-2.0); ABG HCO3 11.1 mmol/L (22.0-26.0); ABG OXYGEN SATURATION 87.4 % (94-97); ABG PCO2 (T) 28.1 mmHg (35.0-48.0); ABG PH (T) 7.215 (7.340-7.440); ABG PO2 (T) 70.9 mmHg (75.0-100.0); ALLEN'S TEST POSITIVE; FCOHb 0.4 % (0.0-3.9); FHHb 12.5 % (0.0-5.0); FMetHb 0.2 % (0.0-1.5); FO2Hb 86.9 % (94-97); MODE RA; TOTAL HEMOGLOBIN 14.4 G/dl (14.0-17.9)
[2023-06-05] MEDS: dexamethasone sod phosphate 10mg/ml inj IV STA (18:05)
[2023-06-05] MEDS ORDERED: magnesium hydroxide 30ml (MOM) UD suspension PO PRN (20:35)
[2023-06-05] MEDS ORDERED: acetaminophen 325mg tablet PO PRN (20:35)
[2023-06-05] MEDS ORDERED: ondansetron/PF 4mg/2ml inj IV PRN (20:35)
[2023-06-05] MEDS ORDERED: mag hydrox/Alum hydrox/simeth 30ml oral suspension PO PRN (20:35)
[2023-06-05] MEDS ORDERED: DEXTROSE 15 GM of carb/4 tabs (each vial/BOTTLE has 4 tablets) PO PRN ×2 (20:45)
[2023-06-05] MEDS ORDERED: glucagon, human recombinant 1mg kit SUBCUT PRN (20:45)
[2023-06-05] MEDS ORDERED: dextrose 50%-water 50ml dispensing syringe IV PRN ×2 (20:45)
[2023-06-05] MEDS: MESSAGE TO PHARMACY PO ONE (21:06)
[2023-06-05] MEDS: vancomycin/NS 1 GM ADD-VANTAGE 250 ML IV ONE (21:13)
[2023-06-05 21:30] LABS: ALANINE AMINOTRANSFERASE 345 U/L (12-78); ALBUMIN 3.2 G/DL (3.4-5.0); ALBUMIN/GLOBULIN RATIO 0.9 (1.1-1.5); ALKALINE PHOSPHATASE 112 IU/L (46-116); ANION GAP 28 (8-16); BILIRUBIN,TOTAL 0.7 MG/DL (0.1-1.0); BLOOD UREA NITROGEN 93 MG/DL (7-18); BUN/CREATININE RATIO 18.1 (10.0-20.0); CHLORIDE 93 MMOL/L (99-107); CREATININE 5.13 MG/DL (0.60-1.10); GLUCOSE 144 MG/DL (70-104); POTASSIUM 5.9 MMOL/L (3.5-5.1); SODIUM 133 MMOL/L (135-145); TOTAL PROTEIN 6.7 G/DL (6.4-8.2); eCRCL 12 ML/MIN; eGFR 12 ML/MIN
[2023-06-05] MEDS: SODIUM BICARBONATE 150MEQ IN D5W 1,000 ML IV SCH (21:32)
[2023-06-05 21:33] LABS: ASPARTATE AMINO TRANSFERASE 1161 U/L (10-37)
[2023-06-05] MEDS ORDERED: albuterol 1.25 MG/3 ML (1/2 strength) nebule NEB PRN (21:45)
[2023-06-05 21:46] LABS: CALCIUM 5.9 MG/DL (8.5-10.1)
[2023-06-05 22:13] LABS: HEMOGLOBIN A1C > 12.0 % (4.5-6.2)
[2023-06-05 22:27] LABS: AMYLASE 75 U/L (25-115)
[2023-06-05] MEDS: LidoCAINE 2% Topical Jelly 11mL syringe (UROJET) TOP ONE (22:36)
[2023-06-05] MEDS: CALCIUM GLUC 1gm/50ml NACL,iso 50 ML IV ONE ×2 (23:22→23:50)
[2023-06-06 00:20] VITALS: BP 109/74; PULSE 106; RESP 20; TEMP 97.8; O2SAT 98
[2023-06-06] MEDS ORDERED: HYDROmorphone/PF 0.2 MG/ML SYRINGE IV ONE (03:15)
[2023-06-06] MEDS ORDERED: acetaminophen 325mg tablet PO PRN (03:15)
[2023-06-06] MEDS ORDERED: LORazepam 2 mg/ml vial IV PRN (03:15)
[2023-06-06] MEDS ORDERED: SODIUM ZIRCONIUM CYCLOSILICATE 10 GM POWD.PACK PO SCH (08:00)
[2023-06-06] MEDS ORDERED: Melatonin 3mg tablet PO SCH (21:00)
== END 2023-06-06 04:50 | disposition left against medical advice (07) | DRG 469 ==
LOC: ER 13:44 → ED HOLD 20:44 → EDBEDREQ 23:38 → PCU 3S 23:55
PROVIDERS: ADMIT Internal Medicine Critical Care Medicine; ATTEND Internal Medicine Critical Care Medicine
DX: N17.9 Acute kidney failure, unspecified (principal); E10.42 Type 1 diabetes mellitus with diabetic polyneuropathy; R64 Cachexia; E10.649 Type 1 diabetes mellitus with hypoglycemia without coma; E87.20 Acidosis, unspecified; E10.22 Type 1 diabetes mellitus with diabetic chronic kidney disease; F17.210 Nicotine dependence, cigarettes, uncomplicated; I12.9 Hypertensive chronic kidney disease with stage 1 through stage 4 chronic kidney disease, or unspecified chronic kidney disease; G89.29 Other chronic pain; F15.20 Other stimulant dependence, uncomplicated; E87.5 Hyperkalemia; K74.60 Unspecified cirrhosis of liver; Z20.822 Contact with and (suspected) exposure to COVID-19; N18.30 Chronic kidney disease, stage 3 unspecified; Z53.29 Procedure and treatment not carried out because of patient's decision for other reasons; Z86.16 Personal history of COVID-19; Z88.0 Allergy status to penicillin; Z59.00 Homelessness unspecified; Z68.1 Body mass index [BMI] 19.9 or less, adult
CPT/HCPCS: 36415; 36600; 70450; 71045; 71250; 72125; 74176; 80048; 80053; 80320; 80329; 82009; 82140; 82150; 82803; 82948; 83036; 83605; 83690; 83880; 83930; 84145; 84443; 84484; 85018; 85025; 85610; 85651; 85730; 86140; 87040; 87081; 87502; 87503; 87811; 93005; 94640; 94760; 96365; 96375; 99285; C9113; G0378; J0610; J1100; J1170; J1956; J2405; J3370; J3490; J7030; J7070

== ENCOUNTER 2024-03-24 22:08 | Emergency (ER) | payer MEDICAID ==
[~2024-03-24] VITALS: Ht 167.6 cm; Wt 60.0 kg
[~2024-03-24 22:08] MED LIST changes: -LANTUS SUBCUT
[2024-03-24 23:06] LABS: BASOPHILS # (AUTO) 0.1 X10'3 (0-0.2); BASOPHILS % (AUTO) 0.9 % (0-1); EOSINOPHILS # (AUTO) 0.4 X10'3 (0-0.9); EOSINOPHILS % (AUTO) 3.8 % (0-6); HEMATOCRIT 44.5 % (42.0-52.0); HEMOGLOBIN 15.3 g/dl (14.0-17.9); LYMPHOCYTES # (AUTO) 1.9 X10'3 (1.1-4.8); LYMPHOCYTES % (AUTO) 20.7 % (21-51); MEAN CORPUSCULAR HEMOGLOBIN 30.6 PG (27.0-31.0); MEAN CORPUSCULAR HGB CONC 34.3 g/dL (33.0-36.5); MEAN CORPUSCULAR VOLUME 89.1 FL (78-98); MEAN PLATELET VOLUME 7.9 FL (7.4-10.4); MONOCYTES # (AUTO) 0.6 X10'3 (0-0.9); MONOCYTES % (AUTO) 6.2 % (2-12); NEUTROPHILS # (AUTO) 6.3 X10'3 (1.8-7.7); NEUTROPHILS % (AUTO) 68.4 % (42-75); PLATELET COUNT 321 X10'3 (140-440); RED BLOOD COUNT 4.99 X10'6 (4.70-6.10); RED CELL DISTRIBUTION WIDTH 13.7 % (11.5-14.5); WHITE BLOOD COUNT 9.2 X10'3 (4.5-11.0)
[2024-03-24 23:13] LABS: APTT 25 SECONDS (22-32); PROTHROMBIN TIME 10.7 SECONDS (9.0-12.0)
[2024-03-24 23:14] LABS: ALANINE AMINOTRANSFERASE 41 U/L (12-78); ALBUMIN 3.8 G/DL (3.4-5.0); ALKALINE PHOSPHATASE 121 IU/L (46-116); ANION GAP 7 (8-16); ASPARTATE AMINO TRANSFERASE 24 U/L (10-37); BILIRUBIN,TOTAL 0.6 MG/DL (0.1-1.0); BLOOD UREA NITROGEN 39 MG/DL (7-18); BUN/CREATININE RATIO 20.1 (10.0-20.0); CALCIUM 10.3 MG/DL (8.5-10.1); CHLORIDE 96 MMOL/L (99-107); CREATININE 1.94 MG/DL (0.60-1.10); GLUCOSE 256 MG/DL (70-104); POTASSIUM 4.9 MMOL/L (3.5-5.1); SODIUM 133 MMOL/L (135-145); TOTAL CARBON DIOXIDE 30.2 MMOL/L (24-32); TOTAL PROTEIN 7.7 G/DL (6.4-8.2); eCRCL 35 ML/MIN; eGFR 36 ML/MIN
[2024-03-24 23:27] LABS: FREE T4 (FREE THYROXINE) 1.11 NG/DL (0.73-1.40); PRO BRAIN NATRIURETIC PEPTIDE 51 PG/ML (0-125); THYROID STIMULATING HORMONE 0.32 ulU/ml (0.34-4.50)
[2024-03-25] MEDS: normal saline 1000ML IV soln IVB ONE (00:51)
[2024-03-25] MEDS ORDERED: PANT20TA18 PO (01:48)
[2024-03-25 01:51] LABS: BILIRUBIN,URINE NEGATIVE (Neg); CLARITY,URINE CLEAR (Clear); COLOR,URINE YELLOW (Yellow); GLUCOSE, URINE >=1000 mg/dl (Neg); KETONES,URINE NEGATIVE (Neg); LEUKOCYTE ESTERASE ,URINE NEGATIVE (Neg); NITRITES, URINE NEGATIVE (Neg); OCCULT BLOOD,URINE NEGATIVE (Neg); PROTEIN,URINE NEGATIVE (Neg); UROBILINOGEN,URINE 0.2 E.U/dL (0.2-1.0)
[2024-03-25 02:01] LABS: UA COLLECTION TYPE VOIDED
[2024-03-25 02:03] LABS: BACTERIA,URINE NONE SEEN /HPF (Neg); RBC,URINE NONE SEEN /HPF (0-2); SQUAMOUS EPITHELIAL CELL,UR NONE SEEN /LPF (FEW); WBC,URINE 0-4 /HPF (0-4)
[2024-03-25 02:10] VITALS: BP 140/93; PULSE 93; RESP 18; TEMP 97.9; O2SAT 97
== END 2024-03-25 02:00 | disposition home or self-care (01) ==
LOC: ER 22:10
DX: E11.65 Type 2 diabetes mellitus with hyperglycemia (principal); G89.29 Other chronic pain; I12.9 Hypertensive chronic kidney disease with stage 1 through stage 4 chronic kidney disease, or unspecified chronic kidney disease; N18.9 Chronic kidney disease, unspecified; K21.9 Gastro-esophageal reflux disease without esophagitis; E11.42 Type 2 diabetes mellitus with diabetic polyneuropathy; E11.22 Type 2 diabetes mellitus with diabetic chronic kidney disease; F15.90 Other stimulant use, unspecified, uncomplicated; Z88.0 Allergy status to penicillin; Z79.899 Other long term (current) drug therapy
CPT/HCPCS: 36415; 71045; 80053; 81001; 82948; 83880; 84439; 84443; 84484; 85025; 85610; 85730; 93005; 96360; 99285; J7030

== ENCOUNTER 2024-06-27 13:23 | Inpatient (IN) | payer MEDICAID ==
[~2024-06-27] VITALS: Ht 167.6 cm; Wt 63.6 kg
[~2024-06-27 13:23] MED LIST changes: +PANT20TA18 PO
--- NOTE | 2024-06-27 13:55 | ELECTROCARDIOGRAPH REPORT ---
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 Mychal Snyder Measurements Intervals [place] Rate: 91 P: 76 NV: 145 QRS: 72 QRSD: 91 T: 91 QT: 385 QTc: 474 Interpretive Statements Sinus rhythm Nonspecific T abnormalities, lateral leads Baseline wander in lead(s) I,aVL Electronically Signed On 06-27-2024 18:18:[address] Mychal Snyder Please click the below link to view image of tracing.
--- NOTE | 2024-06-27 14:14 | Physician Documentation ---
History of Present Illness ~ Chief Complaint: Weakness Stated Complaint: DIABETIC COMPLICATIONS Time Seen by MD: 14:00 Primary Medical Doctor: [facility] Mode of Arrival: EMS, Stretcher HPI 58-year-old male presenting for generalized weakness for the past 2-3 weeks. Patient states that he has not been taking care of himself. He is diabetic and has been taking his insulin. Additionally he states that he has been using a lot of methamphetamines. He reports that he is so weak that he can barely stand on his feet. He endorses some shortness of breath but denies any chest pain, fever, chills or any other associated symptoms. Medication Reconciliation Allergies: Coded Allergies: Penicillins (Verified Allergy, Unknown, 06/27/24) Discontinued Medications Home Med List (No Home Medications), 1, (Reported) Discontinued Reason: ADR (Adverse Drug Rxn) Lisinopril (Lisinopril), 1 TAB PO DAILY Discontinued Reason: ADR (Adverse Drug Rxn) Pantoprazole Sodium (Protonix), 1 TAB PO DAILY Discontinued Reason: ADR (Adverse Drug Rxn) Past Medical History Past Medical History: Peripheral Neuropathy, Hypertension, Chronic Kidney Disease, Diabetes, Chronic Back Pain Past Surgical History: noncontributory Other Past Family History: noncontributory Alcohol Use: Occasionally Drug Use: methamphetamine Lives with: Spouse, Alone Lives In: Home, Homeless Occupation: unemployed Review of Systems All Other Systems at this time: Reviewed and Negative Physical Exam Vital Signs: Temperature: 98.0, Source: Oral, Heart Rate: 93, Respiratory Rate: 16, BP: 180/113, Pulse Oximetry: 94, Weight: 63.600 Oxygen Flow Rate: 0 Physical Exam I have reviewed the triage vitals. CONST: Well developed and well nourished. In no acute distress HENT: Head Atraumatic EYES: Pupils are equal, round and reactive to light. Normal conjunctiva NECK: Normal range of motion. Supple. CARDIO: Normal rate and regular rhythm. No murmurs, rubs, or gallops. S1, S2. PULM/CHEST: No respiratory distress. Lungs clear to auscultation. No wheeze ABD: Soft and nontender. Nondistended. Bowel sounds normal. No guarding. : Exam deferred MSK: No edema. No deformity. NEURO: Alert and oriented to person, place and time. Moving all extremities SKIN: Warm and dry. PSYCH: Normal mood and affect. Good eye contact. Progress Results/Orders Results/Orders Orders - MONA BAEZ MD Chest,Single View (06/27/24 13:52) Monitor (06/27/24 13:52) Saline Lock (06/27/24 13:52) Oxygen (06/27/24 13:52) Hs Troponin I W Calculations (06/27/24 15:52) Hs Troponin I W Calculations (06/27/24 16:52) Culture Blood (06/27/24 14:11) Urinalysis (06/27/24 14:11) Normal Saline 1,000ml Iv Bolus (06/27/24 16:10) Completed Orders - MONA BAEZ MD Chest,Single View (06/27/24 13:52) Cbc/Diff (06/27/24 13:52) PBNP (06/27/24 13:52) Electrocardiogram (06/27/24 13:52) CMP (06/27/24 13:52) Hs Troponin I W Calculations (06/27/24 13:52) Lacticsepsis (06/27/24 14:11) Vital Signs 06/27/24 06/27/24 13:28 15:46 Temp 98.0 Pulse 93 91 Resp 16 15 B/P (MAP) 180/113 179/114 (135) Pulse Ox 94 97 O2 Flow Rate 0 Laboratory Tests Test 06/27/24 14:14 06/27/24 15:34 White Blood Count 8.0 Red Blood Count 4.16 L Hemoglobin 12.4 L Hematocrit 35.8 L Mean Corpuscular Volume 86.1 Mean Corpuscular Hemoglobin 29.9 Mean Corpuscular Hemoglobin Concent 34.7 Red Cell Distribution Width 13.6 Platelet Count 317 Mean Platelet Volume 7.5 Neutrophils (%) (Auto) 73.8 Lymphocytes (%) (Auto) 17.6 L Monocytes (%) (Auto) 7.2 Eosinophils (%) (Auto) 0.9 Basophils (%) (Auto) 0.5 Neutrophils # (Auto) 5.9 Lymphocytes # (Auto) 1.4 Monocytes # (Auto) 0.6 Eosinophils # (Auto) 0.1 Basophils # (Auto) 0.0 CBC Comment Sodium Level 133 L Potassium Level 4.6 Chloride Level 100 Carbon Dioxide Level 27.8 Anion Gap 5 L Blood Urea Nitrogen 26 H Creatinine 1.08 Estimated GFR/1.73 m2 70 BUN/Creatinine Ratio 24.1 H Glucose Level 370 H Lactic Acid Level 1.1 Calcium Level 8.3 L Total Bilirubin 0.3 Aspartate Amino Transf (AST/SGOT) 21 Alanine Aminotransferase (ALT/SGPT) 31 Alkaline Phosphatase 113 Troponin I High Sensitivity 14 Pro-B-Type Natriuretic Peptide 968 H Total Protein 6.0 L Albumin 3.0 L Globulin 3.0 Albumin/Globulin Ratio 1.0 L Chemistry Comments EKG/XRAY/CT/US/VASC/MRI Chest X-Ray : Additional Comments DI CHEST,SINGLE VIEW, HISTORY: CP COMPARISON: DI CHEST,SINGLE VIEW on DOS: 03/24/24, DI CHEST,SINGLE VIEW on DOS: 06/05/23, DI CHEST,SINGLE VIEW on DOS: 05/08/23 DI CHEST,SINGLE VIEW on DOS: 03/24/24, DI CHEST,SINGLE VIEW on DOS: 06/05/23, DI CHEST,SINGLE VIEW on DOS: 05/08/23 TECHNICAL DATA: 1 view of the chest was obtained. FINDINGS: Lines and tubes: None Cardiomediastinal silhouette: normal Pulmonary vasculature: normal Lung expansion: normal Lung airspace: normal Lung interstitium: normal Pleura: normal Pneumothorax: no Bones: Unremarkable Other: no IMPRESSION: No acute intrathoracic abnormality. P Departure Referrals: NO PRIMARY CARE PROVIDER (PCP) MONA BAEZ MD Jun 27, 2024 14:14
[2024-06-27 14:29] LABS: BASOPHILS % (AUTO) 0.5 % (0-1); EOSINOPHILS # (AUTO) 0.1 X10'3 (0-0.9); EOSINOPHILS % (AUTO) 0.9 % (0-6); HEMATOCRIT 35.8 % (42.0-52.0); HEMOGLOBIN 12.4 g/dl (14.0-17.9); LYMPHOCYTES # (AUTO) 1.4 X10'3 (1.1-4.8); LYMPHOCYTES % (AUTO) 17.6 % (21-51); MEAN CORPUSCULAR HEMOGLOBIN 29.9 PG (27.0-31.0); MEAN CORPUSCULAR HGB CONC 34.7 g/dL (33.0-36.5); MEAN CORPUSCULAR VOLUME 86.1 FL (78-98); MEAN PLATELET VOLUME 7.5 FL (7.4-10.4); MONOCYTES # (AUTO) 0.6 X10'3 (0-0.9); MONOCYTES % (AUTO) 7.2 % (2-12); NEUTROPHILS # (AUTO) 5.9 X10'3 (1.8-7.7); NEUTROPHILS % (AUTO) 73.8 % (42-75); PLATELET COUNT 317 X10'3 (140-440); RED BLOOD COUNT 4.16 X10'6 (4.70-6.10); RED CELL DISTRIBUTION WIDTH 13.6 % (11.5-14.5)
[2024-06-27 14:48] LABS: ALANINE AMINOTRANSFERASE 31 U/L (12-78); ALKALINE PHOSPHATASE 113 IU/L (46-116); ANION GAP 5 (8-16); ASPARTATE AMINO TRANSFERASE 21 U/L (10-37); BILIRUBIN,TOTAL 0.3 MG/DL (0.1-1.0); BLOOD UREA NITROGEN 26 MG/DL (7-18); BUN/CREATININE RATIO 24.1 (10.0-20.0); CALCIUM 8.3 MG/DL (8.5-10.1); CHLORIDE 100 MMOL/L (99-107); CREATININE 1.08 MG/DL (0.60-1.10); GLUCOSE 370 MG/DL (70-104); POTASSIUM 4.6 MMOL/L (3.5-5.1); PRO BRAIN NATRIURETIC PEPTIDE 968 PG/ML (0-125); SODIUM 133 MMOL/L (135-145); TOTAL CARBON DIOXIDE 27.8 MMOL/L (24-32); eCRCL 66 ML/MIN; eGFR 70 ML/MIN
--- NOTE | 2024-06-27 15:07 | RADIOLOGY REPORT ---
DI CHEST,SINGLE VIEW, HISTORY: CP COMPARISON: DI CHEST,SINGLE VIEW on DOS: 03/24/24, DI CHEST,SINGLE VIEW on DOS: 06/05/23, DI CHEST,SINGL E VIEW on DOS: 05/08/23 DI CHEST,SINGLE VIEW on DOS: 03/24/24, DI CHEST,SINGLE VIEW on DOS: 06/05/23, DI CHEST,SINGLE VIEW on DO S: 05/08/23 TECHNICAL DATA: 1 view of the chest was obtained. FINDINGS: Lines and tubes: None Cardiomediastinal silhouette: normal Pulmonary vasculature: normal Lung expansion: normal Lung airspace: normal Lung interstitium: normal Pleura: normal Pneumothorax: no Bones: Unremarkable Other: no IMPRESSION: No acute intrathoracic abnormality.
[2024-06-27] MEDS: normal saline 1000ml 1,000 ML IV ONE (16:32)
[2024-06-27 16:35] LABS: BILIRUBIN,URINE NEGATIVE (Neg); CLARITY,URINE CLEAR (Clear); COLOR,URINE YELLOW (Yellow); GLUCOSE, URINE >=1000 mg/dl (Neg); KETONES,URINE NEGATIVE (Neg); LEUKOCYTE ESTERASE ,URINE NEGATIVE (Neg); NITRITES, URINE NEGATIVE (Neg); OCCULT BLOOD,URINE NEGATIVE (Neg); PROTEIN,URINE NEGATIVE (Neg); UROBILINOGEN,URINE 0.2 E.U/dL (0.2-1.0)
[2024-06-27 17:01] LABS: UA COLLECTION TYPE NON-SPECIFIED
[2024-06-27 17:02] LABS: BACTERIA,URINE NONE SEEN /HPF (Neg); RBC,URINE 0-2 /HPF (0-2); SQUAMOUS EPITHELIAL CELL,UR NONE SEEN /LPF (FEW); WBC,URINE NONE SEEN /HPF (0-4)
[2024-06-27 17:03] LABS: MUCUS STRANDS FEW /LPF (Neg)
[2024-06-27] MEDS ORDERED: magnesium sulf-water 2g/50mL 50 ML IV PRN (18:35)
[2024-06-27] MEDS ORDERED: magnesium Cl slow-release 64mg tablet PO PRN (18:35)
[2024-06-27] MEDS ORDERED: potassium Cl 20 mEq SR tablet PO PRN ×2 (18:35)
[2024-06-27] MEDS ORDERED: ondansetron/PF 4mg/2ml inj IV PRN (18:35)
[2024-06-27] MEDS ORDERED: magnesium sulf-water 4G/100mL 100 ML IV PRN (18:35)
[2024-06-27] MEDS ORDERED: acetaminophen 325mg tablet PO PRN (18:35)
[2024-06-27] MEDS ORDERED: magnesium hydroxide 30ml (MOM) UD suspension PO PRN (18:35)
[2024-06-27] MEDS ORDERED: morphine 2 MG/ML inj. syringe IV PRN (18:35)
[2024-06-27] MEDS ORDERED: mag hydrox/Alum hydrox/simeth 30ml oral suspension PO PRN (18:35)
[2024-06-27] MEDS ORDERED: potassium Cl 40MEQ/1/2NS 520ml 520 ML IV PRN (18:35)
[2024-06-27] MEDS ORDERED: ipratropium/albuterol 3ml nebule NEB PRN (18:35)
[2024-06-27] MEDS: PERFLUTREN PROTEIN-A MICROSPHR (Optison) 0.22 MG/ML 3ML VIAL IV ONE (18:52)
[2024-06-27] MEDS: K and/or MAG REPLACEMENT MC SCH (18:54)
[2024-06-27] MEDS ORDERED: haloperidol 5mg tablet PO PRN (18:55)
[2024-06-27] MEDS ORDERED: haloperidol lactate 5mg/ml inj IM PRN (18:55)
[2024-06-27] MEDS ORDERED: LORazepam 2 mg/ml vial IV PRN (18:55)
[2024-06-27] MEDS ORDERED: nicotine 14mg patch - 24hr TD PRN (18:55)
[2024-06-27] MEDS ORDERED: LORazepam 1 MG tablet PO PRN (18:55)
[2024-06-27 19:03] LABS: HEMOGLOBIN A1C 11.7 % (4.5-6.2)
[2024-06-27] MEDS ORDERED: diazepam inj 5 MG/ML inj. IV PRN (19:10)
--- NOTE | 2024-06-27 19:15 | HISTORY AND PHYSICAL-Residence ---
History & Physical Providers to Resident Creating Document: BIJU KOLB RES ~ History of Present Illness Primary Medical Doctor: [facility] Reason for Admit\Complaint: COPD exacerbation History of Present Illness 58 years old male with past medical history of poorly controlled HTN, noncompliance diabetes on insulin injection, peripheral neuropathy, CKD stage 2, chronic back pain and polysubstance abuse-tobacco, methamphetamine, and alcohol, marijuana presented with acute on chronic shortness of breaths for to months which is progressive over two weeks associated with brownish colored sputum productive cough along with generalized weakness over two weeks. He endorsed that his shortness of breath which is progressive in nature over two weeks started two months ago especially on exertion. He noticed he has been having greenish brown colored sputum over two weeks and reported that he ran low-grade fever last night. He denies chest pain/pressure/discomfort, orthopnea, PND and bilateral pedal edema. He has never been diagnosed with CHF and not on any lasix therapy before. He denied history of using oxygen at home, recent travel long distance history, DVT, malignancy and treatments in 6 weeks, and prolonged imbolization history and sick contacts. The last time he used meth was this morning but did not notice his SOB and weakness have not been getting worse after he used one. He is ambulatory without using any walking aids. He also complained that he has been having tingling and numbness and almost stepped on the glasses without having any sensation two days ago. He stopped using insulin because lack of supply since 1-2 weeks ago. Allergies: Coded Allergies: Penicillins (Verified Allergy, Unknown, 06/27/24) Home Medications Home Medications Active Past Medical History Past Medical History poorly controlled HTN, noncompliance diabetes on insulin injection, peripheral neuropathy, CKD stage 2, chronic back pain and polysubstance abuse-tobacco, methamphetamine, and alcohol, marijuana Past Surgical History Surgical History Comment No significant past surgical history Past Social History Social History Comment He said that he is living with his fiancee at the [facility] in [place], fully ambulatory without using any walking aids, has been smoking for more than 40 years with a pack of cigarettes per day, more than seven years' history of using marijuana smoking, stated that he has been quitting drinking alcohol months ago, history of using methamphetamine and the last time was this morning, and denies using any illicit drugs. Smoking: Cigarettes, Greater than 1 pack/day Alcohol Use: Occasionally Drug Use: Methamphetamine Lives with: Spouse, Alone Lives In: Home, Homeless Occupation: unemployed ROS All Other Systems: Reviewed and Negative ROS Constitutional: No fever, chills, dizziness, weakness, weight gain or loss Eyes: No pain, erythema, discharge, blurring of vision ENT: No sore throat, epistaxis, tinnitus Cardiovascular: No chest pain, chest pressure, chest discomfort, palpitations, syncope, lower extremity edema, paroxysmal nocturnal dyspnea Respiratory: No hemoptysis Gastrointestinal: Normal appetite. No nausea, vomiting, diarrhea, constipation, hematemesis, abdominal pain, bloating, melena or fresh blood Genitourinary: No frequency, urgency, nocturia, hematuria or dysuria Musculoskeletal: No arthralgias or myalgias Integumentary: No change in skin, hair, nails. No swelling, bruising, abrasions Neurologic: No headache, neck pain, numbness or tingling of the extremities, weakness Psychiatric: No delusions, depression, loss of interest in normal activity or change in sleep pattern, hallucinations, suicidal ideations Endocrine: No fatigue, weakness, polydipsia, polyuria, change in appetite, heat or cold intolerance, sweating, dry skin Hematological: No bleeding, petechiae, bruising Allergies: No asthma or urticaria Exam Vitals: Vital Signs Date Time Temp Pulse Resp B/P (MAP) Pulse Ox O2 Delivery O2 Flow Rate FiO2 06/27/24 17:31 92 18 186/117 (140) 97 06/27/24 13:28 98.0 0 General: General: Well alert, well oriented, not confused, not agitated, not in acute distress, well cooperated during the physical. HEENT: HEENT: Conjunctive are pink, sclerae clear, no icterus, pupil is equal in both sides, reactive to light, no ear discharge, no pharyngeal erythema or an edema, mouth and lips are moist. Neck: Neck: Supple, no JVD, no lymphadenopathy and thyromegaly. Chest: Lungs:Equal air entry on both lungs, bilateral basal crackles and widespread bilateral rhonchi Cardiovascular: Heart: S1-S2 regular sinus rhythm and, regular rate, no gallops, no rubs, no murmurs Abdomen: Abdomen: No visible peristalsis, Bowel sounds present on auscultation, soft, nontender, no guarding, no rigidity Extremities: Extremities: No obvious deformities, no pitting edema bilaterally, capillary refill intact, able to wiggle toes both sides, peripheral pulsations are intact on both sides, and no open wounds/ulcers at the pressure point of the bilateral soles but some old scars over the shins and doses surface of the foot on the left side. 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: No focal neurological deficits, no motor and sensory weakness in all 4 extremities, could move all 4 extremities Musculoskeletal: Musculoskeletal: No joint swelling, deformities, inflammations, and no scoliosis and back tenderness Skin: Skin: No active skin lesions and rashes Diagnostic Data Last Recorded Lab Results: 06/27/24 1414 06/27/24 1414 Additional Plan 58 years old male with past medical history of poorly controlled HTN, noncompliance diabetes on insulin injection, peripheral neuropathy, CKD stage 2, chronic back pain and polysubstance abuse-tobacco, methamphetamine, and alcohol, marijuana presented with acute on chronic shortness of breaths for to months which is progressive over two weeks associated with brownish colored sputum productive cough along with generalized weakness over two weeks. # COPD exacerbation -IV methylprednisone 40 mg b.i.d. -chest x-ray showed no acute cardiopulmonary disease, WNL WBC and pending procalcitonin -breathing therapy ipratropium/albuterol q.4 hours as needed -sputum C&S pending -insensitive spirometry -pending COVID/influenza virus status -aspiration precaution applied # Possible diastolic ETGdAY-04-98% on 06/25/2018 # elevated proBNP -IV Lasix 20 mg b.i.d. -order 2D echocardiogram -last time 2D echocardiogram on 06/25/2018 showed that diastolic dysfunction with LVEF 60-65% -water restrictions -monitor I's and O's # noncompliance T2DM on insulin- HGB A1c 11.7 # poorly controlled high blood pressure -apply sc lispro 5 units after each meal, sc glargine 8 units at bedtime, S/S medium sliding scale regimen and adjust accordingly as per patient RBS -targeted goal therapy of sugar she will be control between 140-180 during hospitalization -diabetic diet 75 g carb controlled -control blood pressure with IV Lasix for now, medication reconciliation pending # normochromic normocytic anemia -hemoglobin 12.4, normochromic normocytic could be early part of CATHERINE vs anemia of chronic disease -we will consider to study iron before replacement therapy # CKD stage 2 # hyponatremia # elevated BUN creatinine ratio-possible depletion of intravascular blood volume # protein calorie malnutrition -EGFR 70, monitor the rate of declining with time -sodium mild 133 hyponatremia most probably from the dilutional hyponatremia from CHF -free water restrictions -monitor renal function daily -encourage protein enriched diet if possible with a BMI 22.6 and hyperproteinemia # polysubstance abuse history-tobacco, alcohol, methamphetamine, marijuana -renal social worker requested, appreciate -tox urine screen pending -encourage quit using substances and explained about the connection between the CVS risks with substance abuse -educated about the possible nicotine patch use vasospasm -mild alcohol withdrawal protocol as needed -continue multivitamins with B1 and folic acid -nicotine patch 14 g as needed CODE STATUS: Full code DVT prophylaxis: Sc heparin Analgesia/sedation: IV morphine as needed Lines/tubes: Peripheral IV GI prophylaxis: Famotidine Nutrition: Carb controlled, heart healthy diet Prognosis: Guarded Disposition: Continue medical management, F/up W/pending labs and workups, renal social worker, PT eval and DC plan. Resident MD attestation: Patient was seen and examined with attending MD, Dr. Esperanza KOLB MD Internal Medicine Resident, PGY2 [facility] Date of Service: Jun 27, 2024 Billing Provider: ASIA HEAD MD Common Visit Codes: 26382-JEOGMCT INP/OBS CARE (HIGH) Secondary Visit Codes: 97567-[id number] CARE PLAN 30 MINUTES BIJU KOLB, RES Jun 27, 2024 19:14 ASIA HEAD MD June 28, 2024 20:57
[2024-06-27] MEDS: nicotine 14mg patch - 24hr TD ONE (19:23)
[2024-06-27] MEDS: heparin, porcine 5000 units/ml vial SQ SCH (19:23)
[2024-06-27] MEDS: furosemide 20 MG/2 ML vial IV SCH (19:24)
[2024-06-27 19:25] LABS: THYROID STIMULATING HORMONE 0.01 ulU/ml (0.34-4.50)
[2024-06-27] MEDS: famotidine 20mg tablet PO SCH (19:25)
[2024-06-27] MEDS ORDERED: glucagon, human recombinant 1mg kit SUBCUT PRN (19:30)
[2024-06-27] MEDS ORDERED: DEXTROSE 15 GM of carb/4 tabs (each vial/BOTTLE has 4 tablets) PO PRN ×2 (19:30)
[2024-06-27] MEDS ORDERED: dextrose 50%-water 50ml dispensing syringe IV PRN ×2 (19:30)
[2024-06-27 20:15] VITALS: PULSE 93; RESP 18; O2SAT 97
[2024-06-27 20:15] LABS: URINE AMPHETAMINE SCREEN POSITIVE (Neg); URINE BARBITUATE SCREEN NEGATIVE (Neg); URINE BENZODIAZEPINES SCREEN NEGATIVE (Neg); URINE CANNABINOID SCREEN NEGATIVE (Neg); URINE COCAINE SCREEN NEGATIVE (Neg); URINE METHADONE SCREEN NEGATIVE (Neg); URINE OPIATE SCREEN NEGATIVE (Neg); URINE PHENCYCLIDINE SCREEN NEGATIVE (Neg)
[2024-06-27] MEDS: insulin glargine (Lantus) pen - multi-dose SQ SCH (21:05)
[2024-06-27] MEDS: INSULIN LISPRO 100 UNIT/ML INSULN.PEN MULTI-DOSE SQ SCH (21:06)
[2024-06-27 22:30] VITALS: BP 147/97; PULSE 92; RESP 14
[2024-06-27] MEDS: gabapentin 100mg capsule PO SCH (23:51)
[2024-06-28] MEDS: morphine 2 MG/ML inj. syringe IV PRN (04:34)
[2024-06-28 05:07] LABS: BASOPHILS # (AUTO) 0.1 X10'3 (0-0.2); EOSINOPHILS # (AUTO) 0.2 X10'3 (0-0.9); HEMATOCRIT 37.9 % (42.0-52.0); HEMOGLOBIN 13.3 g/dl (14.0-17.9); LYMPHOCYTES # (AUTO) 2.4 X10'3 (1.1-4.8); LYMPHOCYTES % (AUTO) 39.1 % (21-51); MEAN CORPUSCULAR VOLUME 85.7 FL (78-98); MEAN PLATELET VOLUME 7.4 FL (7.4-10.4); MONOCYTES # (AUTO) 0.6 X10'3 (0-0.9); MONOCYTES % (AUTO) 9.9 % (2-12); NEUTROPHILS # (AUTO) 2.9 X10'3 (1.8-7.7); PLATELET COUNT 313 X10'3 (140-440); RED BLOOD COUNT 4.43 X10'6 (4.70-6.10); RED CELL DISTRIBUTION WIDTH 13.7 % (11.5-14.5); WHITE BLOOD COUNT 6.2 X10'3 (4.5-11.0)
[2024-06-28 05:14] LABS: ALANINE AMINOTRANSFERASE 28 U/L (12-78); ALBUMIN 2.9 G/DL (3.4-5.0); ALKALINE PHOSPHATASE 115 IU/L (46-116); ANION GAP 2 (8-16); ASPARTATE AMINO TRANSFERASE 18 U/L (10-37); BILIRUBIN,TOTAL 0.3 MG/DL (0.1-1.0); BLOOD UREA NITROGEN 20 MG/DL (7-18); BUN/CREATININE RATIO 17.2 (10.0-20.0); CALCIUM 8.4 MG/DL (8.5-10.1); CHLORIDE 102 MMOL/L (99-107); CHOL/HDL RATIO 2.2 (0.00-4.99); CHOLESTEROL 133 MG/DL (0-200); CREATININE 1.16 MG/DL (0.60-1.10); GLUCOSE 221 MG/DL (70-104); HDL CHOLESTEROL 60 MG/DL (35-60); LDL CHOLESTEROL 62 MG/DL (50-100); MAGNESIUM 1.8 MG/DL (1.5-2.4); POTASSIUM 4.1 MMOL/L (3.5-5.1); SODIUM 137 MMOL/L (135-145); TOTAL CARBON DIOXIDE 32.7 MMOL/L (24-32); TOTAL PROTEIN 5.8 G/DL (6.4-8.2); TRIGLYCERIDES 51 MG/DL (20-135); eCRCL 62 ML/MIN; eGFR 64 ML/MIN
[2024-06-28 06:00] VITALS: BP 147/91; PULSE 74; RESP 20; TEMP 98; O2SAT 98
[2024-06-28 07:00] VITALS: BP 148/95; PULSE 84; RESP 12; TEMP 98.3; O2SAT 96
[2024-06-28] MEDS: multivitamins, therapeutics tablet PO SCH (07:35)
[2024-06-28] MEDS: docusate sod 100mg capsule PO PRN (07:35)
[2024-06-28] MEDS: thiamine 100mg tablet PO SCH (07:36)
[2024-06-28] MEDS: folic acid 1mg tablet PO SCH (07:36)
[2024-06-28 08:51] VITALS: PULSE 77; RESP 16; O2SAT 93
[2024-06-28] MEDS: INSULIN LISPRO 100 UNIT/ML INSULN.PEN MULTI-DOSE SQ SCH (08:56)
[2024-06-28 10:00] VITALS: BP 175/100; PULSE 92; RESP 21; TEMP 98.2; O2SAT 97
[2024-06-28] MEDS ORDERED: FURO-150 PO (12:23)
[2024-06-28] MEDS ORDERED: GABA-530 PO (12:23)
[2024-06-28] MEDS ORDERED: ALBU8HFA INH (12:23)
[2024-06-28] MEDS ORDERED: BUDE10.22 INH (12:23)
[2024-06-28] MEDS ORDERED: LACT1CAP26 PO (12:23)
[2024-06-28] MEDS ORDERED: LEVO-65 PO (12:23)
[2024-06-28 13:03] VITALS: BP_SYST 104; BP_SYST 121; BP_SYST 84; BP_DIAS 60; BP_DIAS 72; BP_DIAS 79; PULSE 93; PULSE 94
[2024-06-28] MEDS: normal saline 1000ml 1,000 ML IVB ONE (13:54)
[2024-06-28 15:55] VITALS: BP_SYST 124; BP_SYST 151; BP_SYST 99; BP_DIAS 100; BP_DIAS 75; BP_DIAS 85; PULSE 93; PULSE 94; PULSE 96
--- NOTE | 2024-06-28 18:29 | CARDIOLOGY REPORT ---
APPROVED REPORT EXAM: Comprehensive 2D, Doppler, and color-flow Echocardiogram. 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 103.5 cm/s AoV VTI 16.7 cm AO Peak GR. 4.3 mmHg AO Mean GR. 2 mmHg LVOT VTI 13.82 cm LVOT Peak Bandar. 82.9 cm/s WILLIAM(VTI)/BSA 2.26 cm2/m2 WILLIAM (VTI) 2.26 cm2 Mitral Valve MV E Velocity 30.9 cm/s MV Peak Gr. 1 mmHg MV DECEL TIME 92 ms MV A Velocity 69.1 cm/s MV PHT 56 ms E/A Ratio 0.4 MVA (PHT) 3.93 cm2 MV VMax44.5 cm/s TDI Lateral E' P. V10.03 cm/s E/Lateral E' 3.1 Tricuspid Valve TR P. Velocity 260 cm/s RAP ESTIMATE 10 mmHg TR Peak Gr. 27 mmHg RVSP 37 mmHg LEFT VENTRICLE Normal LV size and wall thickness. Overall systolic function is severely decreased. LVEF is 30%. RIGHT VENTRICLE RV is normal size and function. ATRIA The left atrium size is normal. AORTIC VALVE Trileaflet AV appears mildly sclerotic without stenosis. No insufficiency. MITRAL VALVE Mitral valve leaflets are mildly thickened with mild annular calcification. No stenosis. Trace regurg itation. TRICUSPID VALVE The tricuspid valve is normal in structure with trace regurgitation. PULMONIC VALVE Pulmonic valve is grossly normal in structure with physiologic insufficiency. GREAT VESSELS The aortic root is normal in size. The IVC is normal in size and collapses >50% with inspiration. PERICARDIUM Normal pericardium. No effusion. Other Information Study Quality: Adequate Conclusion Normal LV size and wall thickness. Overall systolic function is severely decreased. LVEF is 30%. RV is normal size and function. The left atrium size is normal. Trileaflet AV appears mildly sclerotic without stenosis. No insufficiency. Mitral valve leaflets are mildly thickened with mild annular calcification. No stenosis. Trace regu rgitation. The tricuspid valve is normal in structure with trace regurgitation. Normal pericardium. No effusion.
--- NOTE | 2024-06-28 18:45 | DISCHARGE SUMMARY-Residence ---
Discharge Summary Providers to CC Resident Creating Document: BIJU KOLB RES ~ Discharge Summary Admission Diagnosis: Genearlized weakness, T2DM on insulin and meth user Hospital Course DATE OF ADMISSION: 06/27/2024 DATE OF DISCHARGE: 06/28/2024 Discharge Diagnosis\Comment: # COPD exacerbation- resolved # Possible diastolic [id number]% on 06/25/2018 - resolved # elevated proBNP # noncompliance T2DM on insulin- HGB A1c 11.7 - controlled # poorly controlled high blood pressure # normochromic normocytic anemia # CKD stage 2 # hyponatremia - normalized # elevated BUN creatinine ratio-possible depletion of intravascular blood volume # protein calorie malnutrition # polysubstance abuse history-tobacco, alcohol, methamphetamine, marijuana Operations\Procedures: None Consultants: None Complications: None Condition on DC: Stable New Medications: albuterol inhaler (Pro-Air Inhaler) 8.5 Gm Inhaler 2 PUFFS INH Q4HPRN PRN for wheezing for 30 Days, #18 GM Budesonide/Formoterol Fumarate (Symbicort 80-4.5 Mcg Inhaler) 80 Mcg-4.5 Mcg/Actuation Hfa.aer.ad 2 PUFFS INH Q12H for 30 Days, #3 GM 0 Refills Dapagliflozin Propanediol (Farxiga) 5 Mg Tablet 1 TAB PO DAILY for 30 Days, #30 TAB 0 Refills Furosemide (Lasix) 20 Mg Tablet 20 MG PO DAILY for 30 Days, #30 TAB Lactobacillus Rhamnosus (Culturelle) 10 Billion Cell Capsule 1 CAP PO DAILY for 30 Days, #30 CAP 0 Refills Levofloxacin (Levofloxacin) 500 Mg Tablet 1 TAB PO DAILY for 7 Days, #7 TAB Lisinopril (Lisinopril) 2.5 Mg Tablet 1 TAB PO DAILY for 30 Days, #30 TAB 0 Refills Metoprolol Succinate (Metoprolol Succinate) 25 Mg Tab.sr.24h 1 TAB PO DAILY for 30 Days, #30 TAB 0 Refills Spironolactone (Spironolactone) 25 Mg Tablet 25 MG PO DAILY, #30 TAB Gabapentin (Gabapentin) 100 Mg Capsule 100 MG PO Q8H for 30 Days, #90 CAP Discharge Summary: 58 years old male with past medical history of poorly controlled HTN, noncompliance diabetes on insulin injection, peripheral neuropathy, CKD stage 2, chronic back pain and polysubstance abuse-tobacco, methamphetamine, and alcohol, marijuana presented with acute on chronic shortness of breaths for to months which is progressive over two weeks associated with brownish colored sputum productive cough along with generalized weakness over two weeks. Hospital course: He was admitted to the hospital for the his COPD and possible CHF exacerbation causing his shortness of breath for the further explored investigations and management. His chest x-ray showed no acute cardiopulmonary disease, WNL WBC and pending procalcitonin. He was given breathing therapy ipratropium/albuterol q.4 hours as needed and IV methylprednisone 40 mg b.i.d., insensitive spirometry and sputum C&S were sent out. His COVID rapid test showed negative. IV Lasix 20 mg b.i.d. were given for the Possible diastolic [id number]-69-67% on 06/25/2018 and elevated proBNP 968. His 2D echo on 06/28/24 showed severely reduced systolic function with LVEF 30%, LA normal, mild MR and TR with normal pericardium and no effusion. Free water restrictions were applied with a straight monitor I's and O's. His HGB A1c showed 11.7 on noncompliance T1 DM and poorly controlled high blood pressure well-controlled with subcutaneous lispro 5 units after each meal, glargine 8 units at bedtime, medium sliding scale of the insulin regimen, carb controlled diet during his stay. IV Lasix 20 mg b.i.d. was given. His hemoglobin was 12.44 normochromic normocytic anemia could be early part of the CATHERINE. Serum sodium show 133 from dilutional hyponatremia from CHF which were managed with the free water restrictions during hospitalization. guidance services coordinator were requested for his polysubstance abuse tobacco alcohol methamphetamine and marijuana. He was strongly encouraged to quit using sub stances and explained and educated about the condition of CVS risk factors with the substance abuse. Alcohol withdrawal protocol with the appliance and nicotine patch 14 g daily topical was applied for his craving for smoking. DVT prophylaxis was achieved with the sc heparin and pain was controlled with the IV morphine as needed. GI prophylaxis was done with the famotidine. Today, all his labs were reviewed which were within normal limits and a stabilizing hemoglobin around 13.3, sodium 137, potassium 4.1, creatinine 1.16 with random blood sugar 163 which was improved from the admission glucometer reading show 313. All of his vitals were stable at the moment with temp 98.2 F, MS 92/minute, RR 21/minute, BP 130/80 mm Hg, pulse oximetry 97% on room air. 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 On exam, General: Well alert, well oriented, not confused, not agitated, not in acute distress, well cooperated during the physical. HEENT: Conjunctive are pink, sclerae clear, no icterus, pupil is equal in both sides, reactive to light, no ear discharge, no pharyngeal erythema or an edema, mouth and lips are moist. Neck: Supple, no JVD, no lymphadenopathy and thyromegaly. Lungs:Equal air entry on both lungs, bilateral basal crackles and widespread bilateral rhonchi Heart: S1-S2 regular sinus rhythm and, regular rate, no gallops, no rubs, no murmurs Abdomen: No visible peristalsis, Bowel sounds present on auscultation, soft, nontender, no guarding, no rigidity Extremities: No obvious deformities, no pitting edema bilaterally, capillary re fill intact, able to wiggle toes both sides, peripheral pulsations are intact on both sides, and no open wounds/ulcers at the pressure point of the bilateral soles but some old scars over the shins and doses surface of the foot on the left side. 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: No focal neurological deficits, no motor and sensory weakness in all 4 extremities, could move all 4 extremities Musculoskeletal: No joint swelling, deformities, inflammations, and no scoliosis and back tenderness Skin: No active skin lesions and rashes Discharge instructions: -return to ER for the emergecny situations -Follow up with PCP in a week after discharge -inhaler medications compliance -continue antibiotics for 7 days -strict blood sugar control with regular dosage of SC lantus 40 units at home -follow up with Cardiology for substance abuse induced possible cardiomyopathy Resident MD attestation: Patient was seen and examined with attending MD, Dr. Esperanza KOLB MD Internal Medicine Resident, PGY2 [facility] *Problems/Diagnosis: (1) Methamphetamine abuse Status: Chronic (2) Uncontrolled diabetes mellitus Status: Chronic Total Time Spent on D/C: > 30 Minutes Addendum orthostatic hypotension Date of Service: June 28, 2024 Billing Provider: ASIA HEAD MD Common Visit Codes: 28655-XFC/OBS DISCH DAY >30min BIJU KOLB, RES June 28, 2024 18:43 ASIA HEAD MD June 28, 2024 21:01
[2024-06-28] MEDS ORDERED: METO-395 PO (19:14)
[2024-06-28] MEDS ORDERED: LISI2.5T14 PO (19:14)
[2024-06-28] MEDS ORDERED: SPIR25TA5 PO (19:14)
[2024-06-28] MEDS ORDERED: DAPA5TAB PO (19:14)
== END 2024-06-28 17:35 | disposition home or self-care (01) | DRG 426 ==
LOC: ER 13:23 → ED HOLD 17:23 → SUR 3N 22:00
PROVIDERS: ADMIT Internal Medicine; ATTEND Internal Medicine
DX: E87.1 Hypo-osmolality and hyponatremia (principal); E10.42 Type 1 diabetes mellitus with diabetic polyneuropathy; I42.7 Cardiomyopathy due to drug and external agent; E46 Unspecified protein-calorie malnutrition; I13.0 Hypertensive heart and chronic kidney disease with heart failure and stage 1 through stage 4 chronic kidney disease, or unspecified chronic kidney disease; I50.30 Unspecified diastolic (congestive) heart failure; J44.1 Chronic obstructive pulmonary disease with (acute) exacerbation; D64.9 Anemia, unspecified; E10.22 Type 1 diabetes mellitus with diabetic chronic kidney disease; Z20.822 Contact with and (suspected) exposure to COVID-19; F19.10 Other psychoactive substance abuse, uncomplicated; I95.1 Orthostatic hypotension; N18.2 Chronic kidney disease, stage 2 (mild); Z79.899 Other long term (current) drug therapy; Z88.0 Allergy status to penicillin; Z59.00 Homelessness unspecified; Z68.22 Body mass index [BMI] 22.0-22.9, adult; Z91.199 Patient's noncompliance with other medical treatment and regimen due to unspecified reason
CPT/HCPCS: 36415; 71045; 80053; 80061; 80305; 81001; 82948; 83036; 83605; 83735; 83880; 84145; 84443; 84484; 85025; 87040; 87081; 87811; 93005; 93306; 94760; 96360; 96372; 99285; G0378; J1644; J1815; J1938; J2270; J7030; J7040

== ENCOUNTER 2024-08-30 14:09 | Emergency (ER) | payer OTHER, MEDICAID ==
[~2024-08-30] VITALS: Ht 167.6 cm; Wt 56.8 kg
[~2024-08-30 14:09] MED LIST changes: +BUDE10.22 INH; +DAPA5TAB PO; +FURO-150 PO; +GABA-530 PO; +LACT1CAP26 PO; +METO-395 PO; -NO HOME MEDS; -PANT20TA18 PO; +SPIR25TA5 PO
[2024-08-30 14:14] VITALS: TEMP 98.1
[2024-08-30] MEDS: morphine 4 MG/ML inj SYRINge IV ONE (15:16)
[2024-08-30] MEDS: ketorolac trometh 15mg/ml vial 15 MG/ML ML IV ONE (15:16)
[2024-08-30] MEDS ORDERED: HYDR-3973 PO (15:56)
[2024-08-30] MEDS ORDERED: ORPH100T4 PO (15:56)
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
[2024-08-30 17:42] VITALS: BP 130/91; PULSE 94; RESP 16; O2SAT 94
== END 2024-08-30 17:49 | disposition home or self-care (01) ==
LOC: ER 14:10
DX: S29.012A Strain of muscle and tendon of back wall of thorax, initial encounter (principal); I12.9 Hypertensive chronic kidney disease with stage 1 through stage 4 chronic kidney disease, or unspecified chronic kidney disease; E11.22 Type 2 diabetes mellitus with diabetic chronic kidney disease; N18.9 Chronic kidney disease, unspecified; E11.42 Type 2 diabetes mellitus with diabetic polyneuropathy; F15.90 Other stimulant use, unspecified, uncomplicated; F17.200 Nicotine dependence, unspecified, uncomplicated; Z88.0 Allergy status to penicillin; V43.52XA Car driver injured in collision with other type car in traffic accident, initial encounter; Y92.410 Unspecified street and highway as the place of occurrence of the external cause; Y92.89 Other specified places as the place of occurrence of the external cause; Y99.8 Other external cause status
CPT/HCPCS: 96374; 96375; 99284; J1885; J2270

== ENCOUNTER 2025-02-12 22:13 | Emergency (ER) | payer MEDICAID, OTHER ==
[~2025-02-12] VITALS: Ht 170.2 cm; Wt 59.6 kg
[~2025-02-12 22:13] MED LIST changes: +ORPH100T4 PO
--- NOTE | 2025-02-12 22:28 | Physician Documentation ---
History of Present Illness ~ Chief Complaint: Shortness of Breath Stated Complaint: AIRWAY OBSTRUCTION Time Seen by MD: 22:16 Primary Medical Doctor: [facility] Patient presents to the emergency room with swollen uvula. Onset of symptoms this evening. No fevers. Medication Reconciliation Allergies: Coded Allergies: Penicillins (Verified Allergy, Unknown, 08/30/24) Scheduled Budesonide/Formoterol Fumarate (Symbicort 80-4.5 Mcg Inhaler), 2 PUFFS INH Q12H Clindamycin HCL* (Clindamycin HCL*), 1 CAP PO Q8H Dapagliflozin Propanediol (Farxiga), 1 TAB PO DAILY Furosemide (Lasix), 20 MG PO DAILY Gabapentin (Gabapentin), 100 MG PO Q8H Lactobacillus Rhamnosus (Culturelle), 1 CAP PO DAILY Lisinopril (Lisinopril), 1 TAB PO DAILY Metoprolol Succinate (Metoprolol Succinate), 1 TAB PO DAILY Prednisone* (Prednisone*), 1 TAB PO DAILY Spironolactone (Spironolactone), 25 MG PO DAILY Scheduled PRN Orphenadrine Citrate (Norflex), 1 TAB PO Q12H PRN PRN for pain Past Medical History Past Medical History: Peripheral Neuropathy, Hypertension, Chronic Kidney Disease, Diabetes, Chronic Back Pain Past Surgical History: noncontributory Other Past Family History: noncontributory Alcohol Use: Occasionally Drug Use: methamphetamine Lives with: Spouse, Alone Lives In: Home, Homeless Occupation: unemployed Review of Systems ROS All review of systems negative except as per HPI Constitutional: Reports: no symptoms reported, see HPI, chills, diaphoresis, fever, malaise, weakness, other Eyes: Reports: no symptoms reported, see HPI, pain, discharge, blurred vision, double vision, itching, photophobia, redness, tearing, other ENT: Reports: no symptoms reported, see HPI, ear pain, ear bleeding, ear discharge, hearing loss, ear ringing, nose pain, nose bleeding, nose congestion, nose discharge, throat pain, throat swelling, voice change, mouth pain, mouth bleeding, mouth swelling, other Respiratory: Reports: no symptoms reported, see HPI, cough, orthopnea, shortness of breath, SOB with exertion, SOB at rest, stridor, wheezing, hemoptysis, pain with breathing, other Cardiovascular: Reports: no symptoms reported, see HPI, chest pain, left arm pain, diaphoresis, lightheadedness, syncope, edema, palpitations, irregular heart rate, other Gastrointestinal: Reports: no symptoms reported, see HPI, abdomen distended, abdominal pain, nausea, vomiting, diarrhea, constipated, melena, hematemesis, hematochezia, rectal bleeding, rectal pain, dysphagia, poor appetite, poor fluid intake, other Genitourinary: Reports: no symptoms reported, see HPI, burning, discharge, dysuria, frequency, flank pain, hematuria, incontinence, pain, decreased urine output, urgency, other Male Genitalia: Reports: no symptoms reported, see HPI, penile discharge, penile sore, testicular pain, testicular swelling, other Neurological: Reports: no symptoms reported, see HPI, speech problem, headache, dizziness, fainting, tingling, left sided numbness, right sided numbness, left sided weakness, right sided weakness, problems walking, unable to move lower ext, unable to move upper ext, petit mal seizures, tonic-clonic seizures, cognitive dysfunction, other Musculoskeletal: Reports: no symptoms reported, see HPI, pain, swelling, back pain, gout, joint pain, joint swelling, muscle pain, muscle swelling, muscle stiffness, neck pain, other Integumentary: Reports: no symptoms reported, see HPI, rash, itching, lesions, lumps, bruise(s), wound(s), laceration(s), dryness, change in color, other Allergic/Immunologic: Reports: no symptoms reported, see HPI, hives, itching, frequent infections, difficulty healing, other Hematologic/Lymphatic: Reports: no symptoms reported, see HPI, anemia, blood clots, easy bleeding, easy bruising, swollen glands, other Endocrine: Reports: no symptoms reported, see HPI, excessive sweating, flushing, intolerance to cold, intolerance to heat, increased hunger, increased thrist, increased urine, unexplained weight gain, unexplained weight loss, other Psychiatric: Reports: no symptoms reported, see HPI, depression, anxiety, sleeplessness, hopeless, suicidal, hallucinations, other Physical Exam Vital Signs: Temperature: 98.5, Heart Rate: 104, Respiratory Rate: 22, BP: 138/106, Pulse Oximetry: 99, Weight: 59.600 Physical Exam General: Patient is awake, alert, oriented x4 in no acute distress Head: Normocephalic and atraumatic. Eyes: Conjunctival normal. EOMI. PERRL. ENT: Mucous membranes moist. Noted uveitis with erythema associated.no a symmetry Neck: Supple, trachea is midline. Chest: Clear to auscultation bilaterally without rales, rhonchi, or wheezes. There is no accessory muscle use or retractions. Cardiac: RRR without murmurs, gallops, or rubs. Progress Progress Note Uveitis improved. Patient is sleeping comfortably. Upon re-evaluation at 0556 patient states he feels 100% better and I am not able to appreciate his uvula anymore that has that has shrunk down behind his tongue. Steroids are working. I have stressed the absolute need to get his antibiotics and steroids and he acknowledges the need to do so. Results/Orders Results/Orders Orders - ELTON IRIZARRY MD Cult Urine + [place] [address] (02/12/25 23:20) Completed Orders - ELTON IRIZARRY MD Dexamethasone Inj (Decadron 10mg/Ml Inj) (02/12/25 22:17) Normal Saline 1000ml (0.9% Sodium Chlori (02/12/25 22:20) Strep A Rapid (02/12/25 22:17) Cbc/Diff (02/12/25 22:29) BMP (02/12/25 22:29) Procalcitonin (02/12/25 22:29) Drug Screen, Urine (02/12/25 22:30) Ibuprofen Tablet (Motrin Tablet) (02/12/25 22:55) Ua W/Microscopic, Cult If Ind (02/12/25 22:36) Insulin Regular, Human (Humulin R 10 Uni (02/12/25 23:30) Ceftriaxone/O1v-Ghjfpjgz 1gm (Rocephin 1 (02/12/25 23:30) Clindamycin Capsule (Cleocin Capsule) (02/13/25 02:15) Medications Received in ER Medications (Trade) Dose Ordered Sig/Mustapha Route PRN Reason Start Time Stop Time Status Last Admin Dose Admin (Decadron 10mg/ ml inj) 10 mg ONCE STAT IV 02/12/25 22:17 02/12/25 22:20 DC 02/12/25 22:36 10 MG Sodium Chloride 1,000 ml @ 1,000 mls/hr ONCE ONCE IV 02/12/25 22:20 02/12/25 23:19 DC 02/12/25 22:36 1,000 MLS/HR (Motrin tablet) 400 mg ONCE ONCE PO 02/12/25 22:55 02/12/25 22:56 DC 02/12/25 23:12 400 MG (HumuLIN R 10 units per 0.1 ML syringe) 5 units ONCE ONCE IV 02/12/25 23:30 02/12/25 23:31 DC 02/12/25 23:50 5 UNITS Ceftriaxone Sodium 50 ml @ 100 mls/hr ONCE ONCE IV 02/12/25 23:30 02/12/25 23:59 DC 02/12/25 23:45 100 MLS/HR (Cleocin capsule) 300 mg ONCE ONCE PO 02/13/25 02:15 02/13/25 02:16 DC 02/13/25 02:30 300 MG Vital Signs 02/12/25 02/12/25 02/12/25 02/13/25 22:23 22:41 22:43 02:15 Temp 98.5 98.5 98.6 Pulse 104 103 99 Resp 22 14 15 B/P (MAP) 138/106 157/99 (118) 153/96 (115) Pulse Ox 99 99 99 O2 Flow Rate 0 0 02/13/25 04:15 Temp 98.6 Pulse 92 Resp 15 B/P (MAP) 152/92 (112) Pulse Ox 99 O2 Flow Rate 0 Laboratory Tests Test 02/12/25 22:36 02/12/25 22:43 02/13/25 00:54 Urine Specimen Description Urinal Urine Color Yellow Urine Clarity Clear Urine pH 6.0 Urine Specific [place] 1.010 Urine Protein Negative Urine Glucose (UA) >=1000 H Urine Ketones Trace H Urine Occult Blood Trace-intact Urine Nitrite Positive H Urine Bilirubin Negative Urine Urobilinogen 0.2 Urine Leukocyte Esterase Negative Urine RBC 0-2 Urine WBC 5-10 H Urine Squamous Epithelial Cells Few Urine Bacteria 1+ Urine Hyaline Casts 0-3 Urine Mucus Few Urine Culture Indicated Indicated Volume Urine Centrifuged 10 ml Urine Comment Urine Opiates Screen Negative Urine Methadone Screen Negative Urine Fentanyl Screen Negative Urine Barbiturates Screen Negative Urine Phencyclidine Screen Negative Urine Amphetamines Screen Positive Urine Benzodiazepines Screen Negative Urine Cocaine Screen Negative Urine Cannabinoids Screen Positive Drug Screen Comment White Blood Count 9.7 Red Blood Count 4.57 L Hemoglobin 13.9 L Hematocrit 40.5 L Mean Corpuscular Volume 88.6 Mean Corpuscular Hemoglobin 30.3 Mean Corpuscular Hemoglobin Concent 34.2 Red Cell Distribution Width 13.6 Platelet Count 333 Mean Platelet Volume 7.8 Neutrophils (%) (Auto) 79.5 H Lymphocytes (%) (Auto) 12.2 L Monocytes (%) (Auto) 7.3 Eosinophils (%) (Auto) 0.2 Basophils (%) (Auto) 0.8 Neutrophils # (Auto) 7.7 Lymphocytes # (Auto) 1.2 Monocytes # (Auto) 0.7 Eosinophils # (Auto) 0.0 Basophils # (Auto) 0.1 CBC Comment Sodium Level 136 Potassium Level 4.5 Chloride Level 99 Carbon Dioxide Level 29.6 Anion Gap 7 L Blood Urea Nitrogen 33 H Creatinine 1.60 H Estimated GFR/1.73 m2 44 BUN/Creatinine Ratio 20.6 H Glucose Level 358 H Calcium Level 8.8 Albumin 3.6 Procalcitonin < 0.05 Chemistry Comments Group A Streptococcus Rapid Positive H Microbiology Date/Time Source Procedure Growth Status 02/12/25 23:20 Urine Urinal (Er Only) Urine Culture - Preliminary Culture received. Resulted Medical Decision Making Additional information obtaine: old records Findings Patient presented to the with chief complaint of swollen uvula. Differentials include but are not limited to uveitis, strep throat, peritonsillar abscess, retropharyngeal abscess. Rapid strep is positive and antibiotics has been initiated. Steroids initiated for patient's swollen uvula and patient monitored in the emergency room with improvement of his uvular edema. We will continue antibiotics and steroids with ER precautions discussed. Heart Score: 0 Differential Dx:Considerations: Include: anxiety, asthma, bronchitis, cardiogenic shock, CHF, COPD, dysrhythmia, hypertension, accelerated, hypertension, essential, hypertension, malignant, hyperventilation, hypona tremia, myocardial infarction, panic attack, pneumonia, pneumonitis, pneumothorax, PSVT, pulmonary embolism, respiratory distress, respiratory failure, sinusitis, upper resp. infection, other Departure Disposition: HOME / SELF CARE / HOMELESS Impression: Primary Impression: Strep throat Additional Impression: Uvulitis Condition: Improved Discharge Instructions: Strep Throat, Adult, [id number] Referrals: NO PRIMARY CARE PROVIDER (PCP) Prescriptions Clindamycin HCL* (Clindamycin HCL*) 300 Mg Capsule 1 CAP PO Q8H for 10 Days, #30 CAP 0 Refills Prov: ELTON IRIZARRY MD 02/13/25 Prednisone* (Prednisone*) 20 Mg Tablet 1 TAB PO DAILY for 5 Days, #5 TAB Prov: ELTON IRIZARRY MD 02/13/25 Education Educated: Patient Educated regarding: diagnosis, treatment, need for follow up Signature Scribe Signature: No scribe Attestation: The note accurately reflects work and decisions made by me.Elton Irizarry MD 02/13/25 02:24 ELTON IRIZARRY MD Feb 12, 2025 22:28
[2025-02-12] MEDS: normal saline 1000ml 1,000 ML IV ONE (22:36)
[2025-02-12] MEDS: dexamethasone sod phosphate 10mg/ml inj IV STA (22:36)
[2025-02-12 22:52] LABS: MEAN PLATELET VOLUME 7.8 FL (7.4-10.4); RED CELL DISTRIBUTION WIDTH 13.6 % (11.5-14.5)
[2025-02-12 23:01] LABS: CREATININE 1.60 MG/DL (0.60-1.10); TOTAL CARBON DIOXIDE 29.6 MMOL/L (24-32); eCRCL 41 ML/MIN; eGFR 44 ML/MIN
[2025-02-12 23:04] LABS: LEUKOCYTE ESTERASE ,URINE NEGATIVE (Neg); NITRITES, URINE POSITIVE (Neg); OCCULT BLOOD,URINE TRACE-INTACT (Neg)
[2025-02-12 23:05] LABS: URINE AMPHETAMINE SCREEN POSITIVE (Neg); URINE BARBITUATE SCREEN NEGATIVE (Neg); URINE BENZODIAZEPINES SCREEN NEGATIVE (Neg); URINE CANNABINOID SCREEN POSITIVE (Neg); URINE COCAINE SCREEN NEGATIVE (Neg); URINE METHADONE SCREEN NEGATIVE (Neg); URINE OPIATE SCREEN NEGATIVE (Neg); URINE PHENCYCLIDINE SCREEN NEGATIVE (Neg)
[2025-02-12 23:12] LABS: UA COLLECTION TYPE URINAL
[2025-02-12] MEDS: ibuprofen tablet 400 MG TABLET PO ONE (23:12)
[2025-02-12 23:17] LABS: MUCUS STRANDS FEW /LPF (Neg); SQUAMOUS EPITHELIAL CELL,UR FEW /LPF (FEW)
[2025-02-12 23:18] LABS: HYALINE CASTS 0-3 /LPF (NEGATIVE)
[2025-02-12] MEDS: CefTRIAXone/D5W-Rocephin 1gm 50 ML IV ONE (23:45)
[2025-02-12] MEDS: insulin regular, human 10 units/0.1 ml syringe IV ONE (23:50)
[2025-02-13 01:23] LABS: STREP A SCREEN POSITIVE (Neg)
[2025-02-13] MEDS ORDERED: CLIN-224 PO (02:24)
[2025-02-13] MEDS ORDERED: PRED20TA PO (02:24)
[2025-02-13 06:06] VITALS: BP 142/86; PULSE 86; RESP 18; TEMP 98.6; O2SAT 99
== END 2025-02-13 06:08 | disposition home or self-care (01) ==
LOC: ER 22:14
DX: J02.0 Streptococcal pharyngitis (principal); K12.2 Cellulitis and abscess of mouth; I12.9 Hypertensive chronic kidney disease with stage 1 through stage 4 chronic kidney disease, or unspecified chronic kidney disease; E11.42 Type 2 diabetes mellitus with diabetic polyneuropathy; E11.22 Type 2 diabetes mellitus with diabetic chronic kidney disease; N18.9 Chronic kidney disease, unspecified; F15.90 Other stimulant use, unspecified, uncomplicated; G89.29 Other chronic pain; Z88.0 Allergy status to penicillin; Z79.52 Long term (current) use of systemic steroids; Z79.899 Other long term (current) drug therapy; Z59.00 Homelessness unspecified; Z56.0 Unemployment, unspecified; Z72.89 Other problems related to lifestyle; Z60.2 Problems related to living alone; Z88.8 Allergy status to other drugs, medicaments and biological substances
CPT/HCPCS: 36415; 80048; 80305; 81001; 84145; 85025; 87088; 87880; 96361; 96365; 96375; 99285; J0696; J1100; J1815; J7030